=== PATIENT | male | born 1945 | race Caucasian/White ===

== ENCOUNTER 2022-04-24 10:38 | Inpatient (IN) | payer OTHER, SELFPAY ==
[2022-04-24] VITALS (20 sets, daily range): BP systolic 115–168; BP diastolic 55–84; PULSE 65–89; RESP 12–29; TEMP 36.4; O2SAT 93–97
--- NOTE | 2022-04-24 10:41 | XR_ITS ---
WS: [id number] Portable AP upright chest, 04/24/2022 Clinical Data: chest pain Comparison: None. Findings: No nodules, masses or effusions are seen. The heart is normal. The pulmonary vascularity is not increased. No pneumonia or pneumothorax is seen. The aortic arch and descending thoracic aorta s how minimal calcification and tortuosity. There are monitor leads on the chest wall. XR/XR chest 1V portable [id number] Impression: Atherosclerosis.
--- NOTE | 2022-04-24 10:41 | ECG_ITS ---
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 Measurements Intervals [place] Rate: 79 P: 68 RI: 185 QRS: -33 QRSD: 91 T: 63 QT: 375 QTc: 431 Interpretive Statements SINUS RHYTHM LEFT AXIS DEVIATION [QRS AXIS < -30] INCOMPLETE RIGHT BUNDLE BRANCH BLOCK [90+ ms QRS DURATION, TERMINAL R IN V1/V2, 40+ ms S IN I/aVL/V4/V5/V6] No previous ECG available for comparison Electronically Signed On 04-24-2022 23:38:25 RADIOLOGIC TECHNOLOGIST MAMMOGRAM by Johann Todd M.D. [id number]
--- NOTE | 2022-04-24 10:50 | ED_ITS ---
HPI - Chest Pain General: Chief Complaint: ER Hold Stated Complaint: CHEST PAIN Time Seen by Provider: 04/24/22 10:41 Source: patient Mode of arrival: ambulatory History of Present Illness: 76-year-old male who presents to the emergency room with complaints of chest pain. He is intermittently having chest pain for the last several weeks usually comes at rest resolves after 10 minutes roughly. He will get diaphoretic and nauseous with it today had a more severe intense episode while he was at rest he did not improve. He was driving at the time he drove back into town and went to the [place] they directed him to the ER via [facility]. First EKGs done at the [place] were negative. He was given sublingual nitro by EMS and reports that chest discomfort did improve he still has a little mild chest discomfort now. He was nauseous diaphoretic and dyspneic with that as well. MD complaint: chest pain Onset (ago): minute(s) Timing of current episode: episodic Prior episodes: Yes Onset: during rest Pain location: substernal and left chest Pain radiation: left arm Severity: moderate Quality: aching and heaviness Relieving factors: nitroglycerin Associated symptoms: Reports diaphoresis, dyspnea and nausea; Deny abdominal pain, fever(s), leg edema, palpitations, sense of impending doom, syncope or vomiting Treatment prior to arrival: nitroglycerin Review of Systems Const: Reports: diaphoresis; Denies: fever(s), chills, body aches, change in appetite, fatigue or malaise ENMT: Denies: throat pain, ear or mastoid pain, nasal discharge or nasal congestion Card: Denies: chest pain, palpitations, irregular heart rhythm, edema, swelling of feet/ankles or syncope Resp: Reports: dyspnea; Denies: productive cough, non-productive cough or wheezing GI: Reports: nausea; Denies: abdominal pain or vomiting : Denies: flank pain, dysuria, urinary frequency or urinary urgency Skin/Breast: Denies: rash or pruritus [facility] ED PFSH: Medical History Benign prostate hyperplasia Surgical History No pertinent past surgical history Family History Other Cancer Diabetes Hypertension Denies family history of CAD (coronary artery disease) Stroke Social History Smoking and tobacco status: never smoked Physical Exam Const: GENERAL APPEARANCE: cooperative and comfortable ORIENTATION/CONSCIOUSNESS: Yes awake, Yes oriented to person, Yes oriented to place and Yes oriented to time HENMT: COMMON NORMALS: normocephalic, atraumatic and hearing grossly normal bilaterally HEAD & SCALP: normocephalic and atraumatic Resp: COMMON NORMALS: normal respiratory effort, No retractions, No use of accessory muscles and clear to auscultation bilaterally AUSCULTATION: clear to auscultation bilaterally Cardio: COMMON NORMALS: regular rate, regular rhythm and No murmurs present (Cardio) RATE: regular rate RHYTHM: regular rhythm GI: COMMON NORMALS: Soft to palpation and No hepatosplenomegaly present AUSCULTATION: Yes normoactive bowel sounds PALPATION: Yes Soft to palpation, No Tenderness to palpation present (GI), No Guarding due to palpation present (GI) and Yes No hepatosplenomegaly present Extremity: COMMON NORMALS: normal to inspection, capillary refill normal, no clubbing, cyanosis or edema, no calf tenderness and no pedal edema Neuro: SENSORIUM/ORIENTATION: Yes oriented to person, Yes oriented to place an d Yes oriented to time Skin: COMMON NORMALS: no rashes or lesions noted GENERAL SKIN EXAM: no rashes or lesions noted Course Vital Signs: Vital signs: Vital Signs Pulse Rate 71 04/24/22 13:30 Respiratory Rate 20 H 04/24/22 13:30 Blood Pressure 126/68 04/24/22 13:30 Pulse Oximetry 96 04/24/22 13:30 Oxygen Delivery Me thod 04/24/22 10:44 MDM - Chest Pain Medical Decision Making Unstable angina. His EKG did not show any acute changes he was given Lovenox aspirin and topical nitro he is asymptomatic at this time but his 2-hour troponin does have a positive delta of 34. We will admit discussed with hospitalist and with cardiology. Dr. Malagon is aware of the delta change. Medical Records I reviewed the patient's medical records. Lab Data I reviewed the patient's lab results. 04/24/22 10:45 04/24/22 10:45 Radiology Impressions Chest X-Ray 04/24/22 10:41 Impression: Atherosclerosis. Laboratory Results WBC 4.5 10^3/uL (4.0-10.0) 04/24/22 10:45 RBC 4.83 10^6/uL (4.1-5.3) 04/24/22 10:45 Hgb 14.9 g/dL (11.7-16.6) 04/24/22 10:45 Hct 42.6 % (42.0-52.0) 04/24/22 10:45 MCV 88.2 fl (80-94) 04/24/22 10:45 MCH 30.8 pg (28.0-34.0) 04/24/22 10:45 MCHC 35.0 g/dL (30.0-36.0) 04/24/22 10:45 RDW 11.9 % (12.1-15.1) L 04/24/22 10:45 Plt Count 175 10^3/cmm (130-400) 04/24/22 10:45 MPV 10.2 fL (7.4-10.4) 04/24/22 10:45 Neut % (Auto) 61.2 % 04/24/22 10:45 Lymph % (Auto) 23.2 % 04/24/22 10:45 [place] % (Auto) 10.7 % 04/24/22 10:45 Eos % (Auto) 3.6 % 04/24/22 10:45 Baso % (Auto) 1.1 % 04/24/22 10:45 Neut # (Auto) 2.75 10^3/uL (1.8-7.7) 04/24/22 10:45 Lymph # (Auto) 1.0 10^3/uL (0.8-4.8) 04/24/22 10:45 [place] # (Auto) 0.5 10^3/uL (0.2-0.9) 04/24/22 10:45 Eos # (Auto) 0.2 10^3/uL (0.0-0.8) 04/24/22 10:45 Baso # (Auto) 0.1 10^3/uL (0.0-0.1) 04/24/22 10:45 Nucleated RBC % (auto) 0 % 04/24/22 10:45 Nucleated RBCs # 0.0 /100WBC 04/24/22 10:45 Sodium 138 mmol/L (136-145) 04/24/22 10:45 Potassium 4.5 mmol/L (3.5-5.1) 04/24/22 10:45 Chloride 102 mmol/L (98-107) 04/24/22 10:45 Carbon Dioxide 27 mmol/L (22-29) 04/24/22 10:45 Anion Gap 13.5 (5-19) 04/24/22 10:45 BUN 14 mg/dL (8-23) 04/24/22 10:45 Creatinine 0.8 mg/dL (0.7-1.2) 04/24/22 10:45 GFR Calculation Not Reportable 04/24/22 10:45 Glucose 113 mg/dL (65-115) 04/24/22 10:45 Calculated Osmolality 287 mOsm/kg (285-295) 04/24/22 10:45 Calcium 9.3 mg/dL (8.5-10.5) 04/24/22 10:45 Total Bilirubin 1.0 mg/dL (0.15-1.2) 04/24/22 10:45 AST 23 U/L (0-40) 04/24/22 10:45 ALT 24 U/L (0-41) 04/24/22 10:45 Alkaline Phosphatase 86 U/L (40-130) 04/24/22 10:45 Troponin T Baseline 11 ng/L (0-15) 04/24/22 10:45 Total Protein 6.6 g/dL (6.6-8.7) 04/24/22 10:45 Albumin 4.5 g/dL (3.5-5.2) 04/24/22 10:45 Globulin 2.1 g/dL (1.3-4.6) 04/24/22 10:45 Discharge Plan Discharge Patient Disposition: Admitted As Inpatient Admit Provider: Deysi Linares Clinical Impression: Unstable angina, Non-ST elevation LA (NSTEMI) Condition: Stable Coding Level of Care Code ED Supervisor Cabinetmaker for Pedro Tyler
[2022-04-24 10:59] LABS: Basophils # 0.1 10^3/uL (0.0-0.1); Basophils % 1.1 %; Eosinophils # 0.2 10^3/uL (0.0-0.8); Eosinophils % 3.6 %; Hematocrit 42.6 % (42.0-52.0); Hemoglobin 14.9 g/dL (11.7-16.6); Lymphocytes % 23.2 %; Mean Corpuscular Hemoglobin 30.8 pg (28.0-34.0); Mean Corpuscular Volume 88.2 fl (80-94); Mean Platelet Volume 10.2 fL (7.4-10.4); Monocytes # 0.5 10^3/uL (0.2-0.9); Monocytes % 10.7 %; Neutrophils # 2.75 10^3/uL (1.8-7.7); Neutrophils % 61.2 %; Nucleated Red Blood Cells % 0 %; Platelet Count 175 10^3/cmm (130-400); Red Blood Count 4.83 10^6/uL (4.1-5.3); Red Cell Distribution Width 11.9 % (12.1-15.1); White Blood Count 4.5 10^3/uL (4.0-10.0)
[2022-04-24 11:21] LABS: Alanine Aminotransferase 24 U/L (0-41); Albumin Level 4.5 g/dL (3.5-5.2); Alkaline Phosphatase 86 U/L (40-130); Anion Gap 13.5 (5-19); Aspartate Amino Transferase 23 U/L (0-40); Blood Urea Nitrogen 14 mg/dL (8-23); Calcium 9.3 mg/dL (8.5-10.5); Carbon Dioxide 27 mmol/L (22-29); Chloride 102 mmol/L (98-107); Globulin 2.1 g/dL (1.3-4.6); Glucose 113 mg/dL (65-115); Osmolality Calculated 287 mOsm/kg (285-295); Potassium 4.5 mmol/L (3.5-5.1); Sodium 138 mmol/L (136-145); Total Protein 6.6 g/dL (6.6-8.7)
[2022-04-24 11:23] LABS: Troponin(5th) Baseline 11 ng/L (0-15)
[2022-04-24] MEDS: nitroglycerin 1 gm/inch oint Pkt 1 INCH TOPICAL (11:41)
--- NOTE | 2022-04-24 12:12 | PC.PHAR ---
pt states he takes care of his own medications-pts va med list has bupropion ir 75mg bid pt states stop taking 6 months ago-pts va med list also has vit c 1000mg daily,probiotic daily,zinc 50mg daily,vitamin d 1000u daily and aspirin 325mg daily pt states stop taking them a month ago
--- NOTE | 2022-04-24 13:07 | ECG_ITS ---
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 Measurements Intervals [place] Rate: 69 P: 81 [place]: 187 QRS: -1 QRSD: 94 T: 81 QT: 373 QTc: 400 Interpretive Statements SINUS RHYTHM INCOMPLETE RIGHT BUNDLE BRANCH BLOCK [90+ ms QRS DURATION, TERMINAL R IN V1/V2, 40+ ms S IN I/aVL/V4/V5/V6] NONSPECIFIC T-WAVE ABNORMALITY Compared to ECG 04/24/2022 10:59:11 T-wave abnormality now present Left-axis deviation no longer present Electronically Signed On 04-24-2022 23:53:45 MANNEQUIN MAKER by Johann Todd M.D. [id number]
[2022-04-24 13:36] LABS: Troponin 5 2HR 45.13 ng/L (0-15)
--- NOTE | 2022-04-24 13:46 | PC.NURSE ---
NOMI Harris took report from NOMI Jaimes at 0650
[2022-04-24 13:48] LABS: Troponin 5 2HR Delta 34.13 ABS# (0-10)
--- NOTE | 2022-04-24 14:11 | PM.HP ---
Providers/Chief Complaint Admitting Physician: Deysi Linares MD Primary Care Provider: Jordan Fatima Chief Complaint: CHEST PAIN History of Present Illness Costa Aguilar is a 76 year old male who does not have significant past medical history of cardiac disease presented today with chief complaint of chest pain. Patient has had 2-3 episodes of chest discomfort which he is describing as burning sensation radiates to his shoulders. His symptoms have no correlation with exertion, he has noticed chest pain at rest as well. Today when he was traveling to [place] he had an episode while he was driving the car. This persisted for good 10 to 20 minutes which was associated with nausea, dizziness pallor complexion. He was seen at [facility] hence was prompted to the ER for further evaluation. He was given aspirin Nitropaste which relieved his symptoms. Review of Systems Const: Denies: fever(s) Eyes: Denies: change in vision ENMT: Denies: throat pain Card: Reports: chest pain Resp: Denies: dyspnea GI: Denies: abdominal pain : Denies: flank pain Musc: Denies: neck pain Skin/Breast: Denies: rash Neuro: Denies: headache(s) Psych: Denies: anxiety Endo: Denies: polyuria Odell/Lymph: Denies: easy bruising All/Imm: Denies: urticaria Medications/Allergies Home Medications Medication Instructions Recorded Confirmed Last Taken Type acetaminophen 500 mg tablet 500 mg PO QID PRN Pain 04/24/22 04/24/22 Unknown History albuterol sulfate 90 mcg/actuation 2 puff inhalation QID PRN 04/24/22 04/24/22 Unknown History aerosol inhaler (ProAir HFA) Shortness Of Breath esomeprazole magnesium 40 mg 40 mg PO BID 04/24/22 04/24/22 04/24/22 08:00 History capsule,delayed release (Nexium) terazosin 10 mg capsule 10 mg PO QPM 04/24/22 04/24/22 04/23/22 History Allergies Allergy/AdvReac Type Severity Reaction Status Date / Time No Known Allergies Allergy Verified 04/24/22 12:08 PFSH Acute PFSH: Medical History Benign prostate hyperplasia Surgical History No pertinent past surgical history Family History Other Cancer Diabetes Hypertension Denies family history of CAD (coronary artery disease) Stroke Social History Smoking and tobacco status: never smoked Vitals/I&O/Wt Last Vital Signs Pulse 71 04/24/22 13:30 Resp 20 H 04/24/22 13:30 BP 126/68 04/24/22 13:30 Pulse Ox 96 04/24/22 13:30 O2 Del Method 04/24/22 10:44 Weight last 48 hrs Weight 91.626 kg Physical Exam Narrative: Pleasant cooperative male Appears stated age Chest pain-free S1, S2 Abdomen soft GCS 15 Nonfocal neuro exam Currently on room air Pleasant and cooperative at the bedside No acute distress Data 04/24/22 10:45 04/24/22 10:45 A&P Assessment and plan (1) Unstable angina: (2) Non-ST elevation CO (NSTEMI): Plan Unstable angina Cardiac consulted We will keep him n.p.o. until coronary intervention No need to stress test Although EKG and troponins are negative but patient has typical signs of underlying angina Continue aspirin and Plavix High-dose statins Optimize antihypertensive regimen Check lipid profile A1c level Full code We will start cardiac diet after cardiac evaluation DVT prophylaxis Lovenox Requested echo Check D-dimer Hypertension: I will give him metoprolol and lisinopril and add chlorthalidone stage III hypertension Talked with Dr. Malagon & the ER physician Attestations Medical Necessity Statement*: Anticipating discharge within 48 hours Diagnoses Unstable angina I20.0 Non-ST elevation CO (NSTEMI) I21.4
--- NOTE | 2022-04-24 14:29 | USCV_ITS ---
Costa Aguilar Age: 76 Gender: M : 1945 Exam Date: 04/24/2022 14:50 Ordering Phys: Deysi Linares MD Technologist: Bandar Nevarez Exam Location: [facility] Indication: UA BP: 118 / 64 HR: 66 Rhythm: Sinus Technical Quality: Suboptimal MEASUREMENTS (Male / Female) Normal Values 2D ECHO LV Diastolic Diameter PLAX 3.4 cm 4.2 - 5.9 / 3.9 - 5.3 cm LV Systolic Diameter PLAX 2.4 cm IVS Diastolic Thickness 1.1 cm 0.6 - 1.0 / 0.6 - 0.9 cm IVS Systolic Thickness 1.4 cm LVPW Diastolic Thickness 1.3 cm 0.6 - 1.0 / 0.6 - 0.9 cm LVPW Systolic Thickness 1.4 cm LVOT Diameter 2.2 cm LV Ejection Fraction 2D Teich 54.1 % LV Ejection Fraction MOD 2C 68.6 % LV Ejection Fraction 2C AL 69.7 % LA Diameter 4.0 cm M-MODE Aortic Annulus Diameter 4.0 cm LA Ao Ratio MM 1.1 MV E Point Septal Separation 0.7 cm DOPPLER AV Peak Velocity 100.0 cm/s LVOT Peak Velocity 89.0 cm/s AV Area Cont Eq vti 3.4 cm squared AV Area Cont Eq pk 3.5 cm squared MV Area PHT 5.0 cm squared Mitral E to A Ratio 0.8 MV E' Velocity 45.0 cm/s Mitral E to MV E' Ratio 7.6 Mitral E to LV E' Lateral Ratio 6.1 Mitral E to LV E' Septal Ratio 9.9 TR Peak Velocity 213.7 cm/s TR Peak Gradient 18.3 mmHg TV Peak E Velocity 77.0 cm/s Right Atrial Pressure 3.0 mmHg Pulmonary Artery Systolic Pressu 21.3 mmHg FINDINGS Left Ventricle Normal left ventricular size, systolic function and wall thickness, with no regional wall motion abnormalities. Grade I/IV diastolic dysfunction (abnormal relaxation filling pattern), normal to mildly elevated filling pressures. Left ventricular ejection fraction is estimated at 60 %. Right Ventricle Normal right ventricular size and systolic function. Normal right ventricular systolic pressure. Right Atrium The right atrium is normal in size. Left Atrium The left atrium is normal in size. Mitral Valve Structurally normal mitral valve without significant stenosis or prolapse. There is no mitral regurgitation. Aortic Valve Structurally normal trileaflet aortic valve. No aortic valve stenosis. Trace to mild aortic valve regurgitation. Tricuspid Valve Structurally normal tricuspid valve without significant stenosis or regurgitation. Pulmonary artery systolic pressure is normal. Pulmonic Valve Structurally normal pulmonic valve. Pericardium Normal pericardium without effusion. Aorta Normal ascending aorta dimension. IVC Inferior vena cava not visualized. CONCLUSIONS Normal left ventricular size, systolic function and wall thickness, with no regional wall motion abnormalities. Grade I/IV diastolic dysfunction (abnormal relaxation filling pattern), normal to mildly elevated filling pressures. Left ventricular ejection fraction is estimated at 60 %. Structurally normal trileaflet aortic valve. No aortic valve stenosis. Trace to mild aortic valve regurgitation. There are no prior echocardiogram studies to compare. Dr. Trever Malagon MD (Electronically Signed) Final Date: 24 April 2022 18:11 S
[2022-04-24 14:57] LABS: D Dimer 0.37 ug/mIFEU (0-0.59)
--- NOTE | 2022-04-24 15:21 | P.CONIM_ITS ---
Providers/Reason For Consult Consulting Physician/Specialty*: Cardiovascular medicine Reason for Consult*: Unstable angina/non-ST segment elevation NM Requesting Physician: Emergency room Attending Physician: Deysi Linares MD Primary Care Provider: Jordan Fatima History of Present Illness History of Present Illness Costa Aguilar is a 76 year old male who has been healthy and has no history of heart disease. Since 16 February he has had 3 episodes of burning in his chest associated with tightness which radiates to both shoulders. These have happened at rest and lasts 5 or 10 minutes. They sound like classic anginal episodes. Today while he and his were traveling to [place] he had an episode while they were in the car. This was at rest also. This 1 was worse and would not go away. It is described as burning in his chest with tightness radiating to the left shoulder associated with diaphoresis. His said that he turned white. She convinced him to go to the [place] clinic who sent him over here. He was given aspirin and Nitropaste. He has been pain-free ever since. His first troponin was 11 and the second is 45. His EKG is unremarkable. He has no past medical history to speak of. He has prostatic hypertrophy. No dyslipidemia no diabetes no hypertension. He quit smoking when he was 29 years old. Review of Systems Narrative: Review of systems is negative Medications/Allergies Home Medications Medication Instructions Recorded Confirmed Last Taken Type acetaminophen 500 mg tablet 500 mg PO QID PRN Pain 04/24/22 04/24/22 Unknown History albuterol sulfate 90 mcg/actuation 2 puff inhalation QID PRN 04/24/22 04/24/22 Unknown History aerosol inhaler (ProAir HFA) Shortness Of Breath esomeprazole magnesium 40 mg 40 mg PO BID 04/24/22 04/24/22 04/24/22 08:00 History capsule,delayed release (Nexium) terazosin 10 mg capsule 10 mg PO QPM 04/24/22 04/24/22 04/23/22 History Allergies Allergy/AdvReac Type Severity Reaction Status Date / Time No Known Allergies Allergy Verified 04/24/22 12:08 PFSH Acute PFSH: Medical History Benign prostate hyperplasia Surgical History No pertinent past surgical history Family History Other Cancer Diabetes Hypertension Denies family history of CAD (coronary artery disease) Stroke Social History Smoking and tobacco status: never smoked Vitals/I&O/Wt Last Vital Signs Pulse 67 04/24/22 14:30 Resp 12 04/24/22 14:30 BP 138/74 04/24/22 14:30 Pulse Ox 96 04/24/22 14:30 O2 Del Method 04/24/22 14:00 Weight last 48 hrs Weight 202 lb Physical Exam Narrative: GENERAL: In general he looks and feels well HEENT: Exam within normal limits. NECK: Supple without jugular vein distention. The carotid upstroke is normal without bruits. BACK: Exam normal. LUNGS: Clear. HEART: Regular rate and rhythm. ABDOMEN: Benign without organomegaly or tenderness. EXTREMITIES: No edema. NEUROLOGIC: Exam normal. SKIN: Unremarkable. Data 04/24/22 10:45 04/24/22 10:45 A&P Assessment and plan (1) Unstable angina: (2) Non-ST elevation NM (NSTEMI): Plan Cardiac catheterization today. I have discussed the risks and the benefits and the procedure with the patient and his . Consult Attestations Medical Necessity Statement: Admission for unstable angina/non-ST segment elevation NM and Moderate Time for a total of 30 minutes, includes reviewing past or interval history, examining/interviewing patient, placing orders, counseling patient/family/other support, updating patient/family/other support, discussing plan of care with staff, communicating with other healthcare providers, documenting encounter and coordinating care Other Coding Information Procedural care (documented in another note) Diagnoses Unstable angina I20.0 Non-ST elevation NM (NSTEMI) I21.4
--- NOTE | 2022-04-24 15:21 | XACV_ITS ---
Exam Room: 2 Ht: 175 cm Wt: 92 kg BSA: 2.14 m2 Gender: Male : 1945 Any Known Allergies: No known allergies Exam Priority: Routine Procedure(s): Procedure Description: Diagnostic procedure Procedure Description: PCI procedure Procedure Description: Left Heart Catheterization Procedure Description: Left ventriculography Procedure Description: Drug Eluting Coronary Stent Procedure Description: Coronary Angiography Vesna VOGT; Diagnostic Cath Status: Urgent Diagnostic Findings * Patient with classic symptoms of unstable angina at rest. Entered the emergency room with no EKG changes but mild elevation in the troponin. Angiography recommended. * Coronary angiography reveals right coronary artery dominance. The left main coronary artery is normal. In the distal portion of the left main extending into the ostial LAD there is an 85% stenosis. The remainder of the there is a small ramus intermedius branch which is essentially normal. The circumflex is likewise normal. The right coronary artery is a large dominant vessel which ends distally as the posterior descending artery and several small posterior left ventricular branches. The vessel is essentially normal.. PCI Status: Urgent PCI LVEF Assessed: Yes PCI Indication: NSTE - ACS Interventional Findings * The ostial LAD was primarily stented with a 4 x 8 mm drug-eluting stent. The end result was excellent. Decision for PCI with Surgical Consult: No PCI for Multi-vessel Disease: No Conclusions 1. Significant flow-limiting ostial LAD lesion. Primarily stented with good result. Recommendations * Medical therapy medical therapy for now. Interventional RX Recommendation: PCI w/o planned CABG Diagnostic RX Recommendation: PCI w/o planned CABG Anticoagulation: Heparin Ventriculography Ejection Fraction: 65.0 % Pressures Phase:Rest AO : 92 / 72 ( 81 ) @ 3:54:00 PM 126 / 64 ( 88 ) @ 3:59:00 PM 124 / 62 ( 86 ) @ 4:00:00 PM 129 / 64 ( 89 ) @ 4:00:00 PM LV : 121 / -4 / 12 @ 3:58:00 PM 103 / 0 / 7 @ 3:59:00 PM 106 / 0 / 6 @ 3:59:00 PM Valves Phase:DefaultPhase AV : 0.0 @ 4:19:27 PM Clinical Evaluation EBL: 5mL-10mL Procedural Details Procedure Consent Obtained. Pre-Procedure Time Out. Identified patient by full name and date of as verbalized by the patient/guarantor. Does the consent match the physician's order: Yes. Accurate & Complete Informed Consent: Yes. Inpatient/Outpatient History & Physical on Chart: Yes. If H&P is completed, is and addenduem needed: No; If yes, is the addendum complete: N/A. Visualize and Verify Site with Patient/Guarantor: N/A. Relevant Radiology Images available: N/A. Pre-op teaching completed and patient verbalized understanding. The risks, benefits, and alternatives of sedation and/or procedure were discussed by physician. The patient agrees to continue. Procedure started. Correct patient, site and procedure confirmed by cath team. PERRLA. Strong, equal hand manager fine bilaterally. Lungs clear x 5 lobes. IV Site on Arrival: 18 gauge in the left anticubital. IV Fluids: 0.9% NaCl at KVO. 0 mL infused prior to dairy laboratory technician. Pre Procedural Pulses: right radial was 3+. Oxygen started at 2liters/min via nasal canula. right groin was prepped with chloroprep then draped in the usual sterile fashion. right radial was prepped with chloroprep then draped in the usual sterile fashion. Physician arrived. Equipment: 6F - Radial. Cardiac Cath Pack. ACIST Manifold Kit Model BT 2000. Heparinized Saline (2 units/mL), 1000 mL bag. Baseline sample Acquired. HR: 78 BPM. Physician scrubbed in. Immediate Pre-Procedure Time Out. Correct Patient: Yes; Correct Procedure: Yes; Correct Site: Yes; Correct Patient Position: Yes; Correct Supplies: Yes; Dried Flammable Prep: Yes; Blood Products Available: N/A;. Lidocaine 1% infiltrated to the right radial. Arterial access obtained. A 6 mozambican TIG catheter in over wire. Multiple views taken of left coronary artery. Georgina Monsivais, SCRUM COACH was relieved by Farhana Oakes RN, DIRECTOR OF INFECTION CONTROL as monitoring person. Catheter redirected to the RCA. Multiple views taken of right coronary artery. Catheter out. A 6 mozambican Angled Pig catheter in over wire. EDP Sample taken: LV 121/-5,12; HR: 95 BPM; SpO2: 97%. LV gram performed in OVI[place]O @ 10 mL/second for a total of 30 mL. EDP Sample taken: LV 103/0,7; HR: 92 BPM; SpO2: 97%. Pullback taken: LV 106/0,6; AO 126/64(88); Mean: , Peak to Peak: 0mmHg, SEP: ; HR: 91 BPM; SpO2: 98%. Catheter out. 6 mozambican XB 3 guide catheter was inserted over the wire. Bern guidewire was advanced through the guide catheter to lesion in the ostial LAD. Inflation Number : 1 A MDT R MATEO 4.0X08 MARY -Lot Number# [id number] was prepped and advanced across the Prox LAD. The stent was deployed at 12 MARISA for 0:23 seconds. Exp. 2023-10-20. Stent balloon out over wire. Results checked. Wire out. Guide catheter out. Dr Malagon scrubbed out. A TR Band was successful obtaining hemostatsis at the Right Radial artery insertion site. TR band placed. Hemostasis obtained. Post Procedure: Pulses reassessed and unchanged. PERRLA. Strong, equal hand manager fine bilaterally. No VTE prophylaxis required. Medication's Wasted: Lidocaine 1% = 1 mL. Medication's Wasted: Nitro = 49.8 mg. Medication's Wasted: Heparin = 1000 units. Medication's Wasted: Other = Fentanyl 50 mcg. Total IV fluids: 33 mL. Post-op diagnosis: S/P PCI of the ostial LAD. PCI Indication: NSTE. Complications: none. Estimated blood loss: 5mL-10mL. Responsiveness - Normal response to verbal stimuli; alert and oriented, PERRLA. Airway - Unaffected, no intervention required; spontaneous ventilation. Circulation: W/N/L, pulses unchanged. Nausea/Vomiting: No. Procedure completed. Vital chart was stopped. Access Site Site: Right Radial artery Sheath Size: 6 Fr Hemostasis Method: TR Band Hemostasis Success: Successful Procedure Medications Start: 3:43 PM Stop: 3:43 PM Medication: Versed Amount: 1 mg Route: I.V. Start: 3:43 PM Stop: 3:43 PM Medication: Fentanyl Amount: 50 mcg Route: I.V. Start: 3:51 PM Stop: 3:51 PM Medication: Nitrogylcerin Amount: 200 mcg Route: I.A. Start: 3:52 PM Stop: 3:52 PM Medication: Versed Amount: 1 mg Route: I.V. Start: 3:51 PM Stop: 3:51 PM Medication: Heparin Amount: 5000 units Route: I.V. Start: 4:14 PM Stop: 4:14 PM Medication: Plavix Amount: 600 mg Route: P.O. I, the attending physician, have reviewed and verified all procedure medications. Yes, all medications given per verbal order History/Risk Factors Hypertension: No Dyslipidemia: No Peripheral Arterial Disease (PAD): No Myocardial Infarction ([place]): No Obesity: No Renal Disease: No Tobacco Use: Never Prior Interventions PCI: No CABG: No Valve Surgery: No Report Signatures Finalized by Dr. Trever Malagon MD on 04/24/2022 04:34 PM
[2022-04-24 15:51] LABS: Estmated Average Glucose 100; Hemoglobin A1C 5.1 % (4.0-6.0)
--- NOTE | 2022-04-24 16:41 | ECG_ITS ---
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 Measurements Intervals Cylinder Rate: 68 P: 70 AR: 203 QRS: -22 QRSD: 91 T: 60 QT: 392 QTc: 419 Interpretive Statements SINUS RHYTHM BORDERLINE LEFT AXIS DEVIATION [QRS AXIS < -20] INCOMPLETE RIGHT BUNDLE BRANCH BLOCK [90+ ms QRS DURATION, TERMINAL R IN V1/V2, 40+ ms S IN I/aVL/V4/V5/V6] Compared to ECG 04/24/2022 13:07:28 T-wave abnormality no longer present Electronically Signed On 04-24-2022 23:54:25 PUBLIC HEALTH PROGRAM MANAGER by Johann Todd M.D. [email or web address] [id number]
[2022-04-24 17:32] LABS: Troponin 5 6HR 44.51 ng/L (0-15)
[2022-04-24 17:36] LABS: Troponin 5 6HR Delta 33.51 ng/L (0-12)
[2022-04-24] MEDS: metoprolol tartrate 25 mg Tablet PO (18:18)
[2022-04-24] MEDS: sodium chloride 0.9% 1,000 ML 100 ML IV (18:19)
[2022-04-24] MEDS: pantoprazole DR 40 mg Tablet PO (18:19)
[2022-04-24] MEDS: chlorthalidone 25 mg Tablet 12.5 MG PO (18:27)
[2022-04-24] MEDS: enoxaparin 40 mg/0.4 mL Syringe SUBCUT (18:27)
[2022-04-24] MEDS: lisinopril 10 mg Tablet PO (18:27)
[2022-04-24] MEDS: terazosin 5 mg Capsule 10 MG PO (18:42)
[2022-04-24] MEDS: acetaminophen 500 mg Tablet PO (18:44)
[2022-04-25] VITALS: BP 171/105; PULSE 78; RESP 23; TEMP 37; O2SAT 97
[2022-04-25] MEDS: sodium chloride 0.9% 1,000 ML 100 ML IV (03:43)
[2022-04-25 05:00] VITALS: BP 111/69; PULSE 59; RESP 21; TEMP 36.5; O2SAT 97
[2022-04-25 05:23] VITALS: PULSE 54
[2022-04-25 05:46] LABS: Blood Urea Nitrogen 12 mg/dL (8-23); Calcium 8.7 mg/dL (8.5-10.5); Carbon Dioxide 24 mmol/L (22-29); Chloride 102 mmol/L (98-107); Glucose 98 mg/dL (65-115); Osmolality Calculated 284 mOsm/kg (285-295); Sodium 137 mmol/L (136-145)
[2022-04-25 05:57] LABS: Anion Gap 15.1 (5-19); Potassium 4.1 mmol/L (3.5-5.1)
--- NOTE | 2022-04-25 06:50 | PM.DCS ---
Discharge Providers Date of Admission: 04/24/22 16:51 Date of Discharge: April 25, 2022 Attending Provider at Admission: Deysi Linares MD Attending Provider at Discharge: Deysi Linares MD Primary Care Provider: Jordan Fatima Diagnoses at Discharge Discharge Diagnosis (1) Unstable angina: Status: Acute (2) Non-ST elevation [place] (NSTEMI): Status: Acute Reason for Visit Reason for Visit: CHEST PAIN Hospital Course Hospital Course 76-year male who presented with typical unstable anginal symptoms, EKG and troponins with significant delta, he was taken to the [facility] right away, received a stent in ostial LAD, symptoms resolved, overnight was bradycardic 54 heart rate noted, for his hypertension he will receive chlorthalidone, lisinopril, amlodipine, avoiding metoprolol for now, he will need aspirin and Plavix for at least 1 year along with atorvastatin. Patient follows up at [facility]. He can continue his Nexium and terazosin for BPH. Patient clinically stable. Shows normal ejection fraction, D-dimer unremarkable. Physical Exam Narrative: Patient awake and alert Right breast without any hematoma S1, S2 Awake and alert We will try to wheezing Pleasant and cooperative Discharge Data Studies Completed and Pending Completed Studies During Hospitalization Category Date Time Status ADVERTISEMENT DISTRIBUTOR request for service Routine Exams 04/24/22 15:21 Completed XR chest 1V portable [id number] Stat Exams 04/24/22 10:41 Completed CV. echo complete* [id number] Routine Ultrasound 04/24/22 14:29 Completed Radiology Impressions Chest X-Ray 04/24/22 10:41 Impression: Atherosclerosis. Laboratory Results WBC 4.5 10^3/uL (4.0-10.0) 04/24/22 10:45 RBC 4.83 10^6/uL (4.1-5.3) 04/24/22 10:45 Hgb 14.9 g/dL (11.7-16.6) 04/24/22 10:45 Hct 42.6 % (42.0-52.0) 04/24/22 10:45 MCV 88.2 fl (80-94) 04/24/22 10:45 MCH 30.8 pg (28.0-34.0) 04/24/22 10:45 MCHC 35.0 g/dL (30.0-36.0) 04/24/22 10:45 RDW 11.9 % (12.1-15.1) L 04/24/22 10:45 Plt Count 175 10^3/cmm (130-400) 04/24/22 10:45 MPV 10.2 fL (7.4-10.4) 04/24/22 10:45 Neut % (Auto) 61.2 % 04/24/22 10:45 Lymph % (Auto) 23.2 % 04/24/22 10:45 [place] % (Auto) 10.7 % 04/24/22 10:45 Eos % (Auto) 3.6 % 04/24/22 10:45 Baso % (Auto) 1.1 % 04/24/22 10:45 Neut # (Auto) 2.75 10^3/uL (1.8-7.7) 04/24/22 10:45 Lymph # (Auto) 1.0 10^3/uL (0.8-4.8) 04/24/22 10:45 [place] # (Auto) 0.5 10^3/uL (0.2-0.9) 04/24/22 10:45 Eos # (Auto) 0.2 10^3/uL (0.0-0.8) 04/24/22 10:45 Baso # (Auto) 0.1 10^3/uL (0.0-0.1) 04/24/22 10:45 Nucleated RBC % (auto) 0 % 04/24/22 10:45 Nucleated RBCs # 0.0 /100WBC 04/24/22 10:45 D-Dimer 0.37 ug/mIFEU (0-0.59) 04/24/22 10:45 Sodium 137 mmol/L (136-145) 04/25/22 04:43 Potassium 4.1 mmol/L (3.5-5.1) 04/25/22 04:43 Chloride 102 mmol/L (98-107) 04/25/22 04:43 Carbon Dioxide 24 mmol/L (22-29) 04/25/22 04:43 Anion Gap 15.1 (5-19) 04/25/22 04:43 BUN 12 mg/dL (8-23) 04/25/22 04:43 Creatinine 0.7 mg/dL (0.7-1.2) 04/25/22 04:43 GFR Calculation Not Reportable 04/25/22 04:43 Glucose 98 mg/dL (65-115) 04/25/22 04:43 Estimat Average Glucose 100 04/24/22 10:45 Hemoglobin A1c 5.1 % (4.0-6.0) 04/24/22 10:45 Calculated Osmolality 284 mOsm/kg (285-295) L 04/25/22 04:43 Calcium 8.7 mg/dL (8.5-10.5) 04/25/22 04:43 Magnesium 2.0 mg/dL (1.7-2.3) 04/25/22 04:43 Total Bilirubin 1.0 mg/dL (0.15-1.2) 04/24/22 10:45 AST 23 U/L (0-40) 04/24/22 10:45 ALT 24 U/L (0-41) 04/24/22 10:45 Alkaline Phosphatase 86 U/L (40-130) 04/24/22 10:45 Troponin T Baseline 11 ng/L (0-15) 04/24/22 10:45 Troponin T 120 Minute 45.13 ng/L (0-15) H 04/24/22 12:55 Delta Troponin T 34.13 ABS# (0-10) H* 04/24/22 12:55 Troponin T Hi Sens 6Hr 44.51 ng/L (0-15) H 04/24/22 16:54 Troponin T Hi Sens 6Hr Delta 33.51 ng/L (0-12) H* 04/24/22 16:54 Total Protein 6.6 g/dL (6.6-8.7) 04/24/22 10:45 Albumin 4.5 g/dL (3.5-5.2) 04/24/22 10:45 Globulin 2.1 g/dL (1.3-4.6) 04/24/22 10:45 Vitals Last Vital Signs Temp 97.7 F 04/25/22 05:00 Pulse 54 L 04/25/22 05:23 Resp 21 H 04/25/22 05:00 BP 111/69 04/25/22 05:00 Pulse Ox 97 04/25/22 05:00 O2 Del Method 04/25/22 05:00 Discharge Plan Discharge Patient Disposition: Home Condition: Stable Prescriptions: New atorvastatin 40 mg Tablet 80 mg PO DAILY Qty: 90 3RF nitroglycerin 0.4 mg Tablet, Sublingual 0.4 mg sublingual Q5M PRN (Reason: Chest Pain) Qty: 10 0RF chlorthalidone 25 mg Tablet 12.5 mg PO DAILY Qty: 90 0RF lisinopril 10 mg Tablet 10 mg PO DAILY Qty: 90 3RF aspirin 81 mg Tablet,Delayed Release (Dr/Ec) 81 mg PO DAILY Qty: 90 3RF clopidogrel 75 mg Tablet 75 mg PO DAILY Qty: 90 3RF amlodipine 5 mg tablet 5 mg PO DAILY Qty: 60 0RF Continued Tylenol Ex Str Rapid Release 500 mg Tablet 500 mg PO QID PRN (Reason: Pain) Nexium 40 mg Capsule,Delayed Release(Dr/Ec) 40 mg PO BID ProAir HFA 90 mcg/actuation Hfa Aerosol Inhaler 2 puff INHALATION QID PRN (Reason: Shortness Of Breath) terazosin 10 mg Capsule 10 mg PO QPM Discharge Orders: Discharge Order (Routine); Ordered 04/25/22 Ordered By: Deysi Linares Referrals: Jordan Fatima [Primary Care Provider] - Patient Instructions: Opioid Safety Discharge Attestations Time Spent in Discharge Care*: less than 30 min Quality Metrics Clinical Quality Measures [ No reported AMI, CVA or VTE this stay] Coding Level of Care Code Acute Code for [facility] Fwd Diagnoses Unstable angina I20.0 Non-ST elevation [place] (NSTEMI) I21.4
--- NOTE | 2022-04-25 07:27 | PM.PN ---
Subjective Subjective: Done he had a non-ST segment elevation NV with classic angina symptoms. He had an ostial LAD lesion which was stented yesterday. He is doing well today. The procedure was done from the right radial artery. He has not been started on a beta-zane due to bradycardia. Vitals/I&O/Wt Last Vital Signs Temp 97.7 F 04/25/22 05:00 Pulse 54 L 04/25/22 05:23 Resp 21 H 04/25/22 05:00 BP 111/69 04/25/22 05:00 Pulse Ox 97 04/25/22 05:00 O2 Del Method 04/25/22 05:00 04/24/22 04/25/22 04/25/22 22:59 06:59 14:59 Intake Total 360 / 360 1740 / 2100 Balance 360 / 360 1740 / 2100 Weight last 48 hrs Weight 202 lb Physical Exam Narrative: GENERAL: Awake alert in no distress HEENT: Exam within normal limits. NECK: Supple without jugular vein distention. The carotid upstroke is normal without bruits. BACK: Exam normal. LUNGS: Clear. HEART: Regular rate and rhythm. ABDOMEN: Benign without organomegaly or tenderness. EXTREMITIES: No edema. The right radial artery entry site is flat, dry without bleeding or hematoma. 2+ pulse. NEUROLOGIC: Exam normal. SKIN: Unremarkable. Data 04/24/22 10:45 04/25/22 04:43 A&P Assessment and plan (1) Non-ST elevation [place] (NSTEMI): (2) Stented coronary artery: (3) Essential hypertension: (4) CAD (coronary artery disease): Plan Patient may. I have placed his follow-up appointment requests in the discharge section of the chart. Restriction is no lifting over 5 pounds for 2 days. Attestations Medical Necessity Statement*: Discharge home and Moderate Time for a total of 20 minutes, includes reviewing past or interval history, examining/interviewing patient, placing orders, counseling patient/family/other support, updating patient/family/other support, documenting encounter and coordinating care Diagnoses Non-ST elevation NV (NSTEMI) I21.4 Stented coronary artery Z95.5 Essential hypertension I10 CAD (coronary artery disease) I25.10
[2022-04-25] MEDS: atorvastatin 40 mg Tablet 80 MG PO (08:14)
[2022-04-25] MEDS: chlorthalidone 25 mg Tablet 12.5 MG PO (08:14)
[2022-04-25] MEDS: aspirin 81 mg EC Tablet PO (08:14)
[2022-04-25] MEDS: lisinopril 10 mg Tablet PO (08:15)
[2022-04-25] MEDS: metoprolol tartrate 25 mg Tablet PO (08:15)
[2022-04-25] MEDS: pantoprazole DR 40 mg Tablet PO (08:15)
[2022-04-25] MEDS: clopidogrel 75 mg Tablet PO (08:15)
--- NOTE | 2022-04-25 09:12 | PC.SOCIAL ---
[facility]
--- NOTE | 2022-04-25 09:26 | PC.NURSE ---
Discharge medications sent to [facility] in [place], two weeks worth of meds were called in to [facility] so [facility]. Discharge education provided, patient IV removed. Patient is awaiting discharge. Patient started to feel dizzy and is going to eat breakfast prior to leaving. Nurse will continue to monitor.
--- NOTE | 2022-04-25 10:05 | PC.NURSE ---
Patient has become bradycardic and hypotensive. Physician notified. Will hold discharge until 12 and reevaluate.
--- NOTE | 2022-04-25 10:10 | PC.CHAP ---
Pastoral Care Encounter/Spiritual Assessment Type of Contact [] Declined erp implementation consultant visit [] Patient/Family/Request visit [] Outpatient visit [] Follow-up visit [] Physician referral [] Code/Alert [x] Routine visit [] Staff referral [] Actively dying [] Patient sleeping [x] Family support [] [] Out of room [] Palliative care [] [] Receiving care in room [] Pre-surgical visit [] Trauma [] Long length of stay [] ICU visit [] Other: Relational/Emotional Strength [x] Patient feels connected with others/family/visitors/staff [] Distress [] Loneliness/isolation [] Abandonment Spirituality of Patient [x] Person of Tawanna [] Attends Yazdanism of their Tawanna [x] Believes in Prayer [] Reads Bible or Sikh materials [] There are Spiritual issues to be addressed Welding Lead Burner Interventions [x] Prayer [] Active listening [] Non-anxious presence [] Spiritual/emotional support [] Crisis/trauma care [] Spiritual counseling [] Bereavement support [] Provided bereavement packet [] Provided Bible/devotional materials [] Provided toy/stuffed animal, coloring book to patient or family member [] Provided Communion [] Anointing/[place] [] Salvation [] Completed spiritual assessment [] Other: Impact on Illness or Injury [] Angry [] Fearful [] Anxious [] Often cries [] Exhaustion [] Unable to work [] Unable to attend orthodox [] Unable to walk/stand [] Unable to read [] Unable to drive [] Unable to eat/drink [] Unable to sleep [] Unable to be with family [] Patient intubated [] Other: Summary Time spent with patient 10 min
--- NOTE | 2022-04-25 11:34 | PM.PN ---
Vitals/I&O/Wt Last Vital Signs Temp 97.7 F 04/25/22 05:00 Pulse 54 L 04/25/22 05:23 Resp 21 H 04/25/22 05:00 BP 111/69 04/25/22 05:00 Pulse Ox 97 04/25/22 05:00 O2 Del Method 04/25/22 05:00 04/24/22 04/25/22 04/25/22 22:59 06:59 14:59 Intake Total 360 / 360 1740 / 2100 100 / 100 Balance 360 / 360 1740 / 2100 100 / 100 Weight last 48 hrs Weight 91.626 kg Data 04/24/22 10:45 04/25/22 04:43 Coding Level of Care Code Acute Code for Chg Fwd
--- NOTE | 2022-04-25 12:00 | PC.NURSE ---
Physician notified of decreased pulse and heart rate that has continued. Instructed to push oral fluids and keep another hour
--- NOTE | 2022-04-25 13:20 | PC.NURSE ---
Patient vital signs have improved, discontinued amlodipine from patient medications. Called [facility] in [facility] to cancel medication. Patient was d/c via private vehicle accompanied by spouse
[2022-04-25 13:27] VITALS: BP 106/72; PULSE 58; RESP 18; O2SAT 96
== END 2022-04-25 13:28 | disposition home or self-care (01) | DRG 247 ==
LOC: ER 11:47 → ER IP 12:53 → CSU 15:09
PROVIDERS: Internal Medicine Cardiovascular Disease; Admitting Provider Internal Medicine; Emergency Provider Family Medicine; PCP Internal Medicine; Visit Provider Internal Medicine
PROC: 027034Z Dilation of Coronary Artery, One Artery with Drug-eluting Intraluminal Device, Percutaneous Approach (ICD-10-PCS; principal; 2022-04-24 15:00)
PROC: 027034Z Dilation of Coronary Artery, One Artery with Drug-eluting Intraluminal Device, Percutaneous Approach (ICD-10-PCS; 2022-04-24 15:00)
DX: I21.4 Non-ST elevation (NSTEMI) myocardial infarction (principal); I25.110 Atherosclerotic heart disease of native coronary artery with unstable angina pectoris; I10 Essential (primary) hypertension; Z87.891 Personal history of nicotine dependence
CPT/HCPCS: 36415; 71045; 80048; 80053; 83036; 83735; 84484; 85025; 85378; 93005; 93306; 93458; 96365; 96372; 99152; 99153; 99285; C1769; C1874; C1887; C1894; C9600; G0378; J1644; J1650; J2250; J3010; J3490; J7030; Q9967

== ENCOUNTER → 2022-05-12 08:50 | Outpatient (BNVA) | payer OTHER, SELFPAY | PROVIDERS: PCP Family Medicine; Visit Provider Nurse Practitioner Family | DX: I25.10 Atherosclerotic heart disease of native coronary artery without angina pectoris (principal); I10 Essential (primary) hypertension | CPT/HCPCS: 36415; 71046; 80048; 83880; 99214 ==

== ENCOUNTER 2022-06-09 09:20 | Outpatient (CLI) | payer OTHER, SELFPAY ==
--- NOTE | 2022-06-09 09:36 | USCV_ITS ---
Costa Aguilar Age: 76 Gender: M : 1945 Exam Date: 06/09/2022 10:06 Ordering Phys: Baldemar Villatoro Technologist: Uche Diaz Exam Location: [facility] [place] Indication: coronary artery disease BP: 140 / 80 HR: 68 Rhythm: Sinus Technical Quality: Adequate MEASUREMENTS (Male / Female) Normal Values 2D ECHO LVOT Diameter 2.0 cm LV Ejection Fraction MOD 2C 64.5 % LV Ejection Fraction 2C AL 65.2 % LA Diameter 3.3 cm LA Width 3.1 cm LA Height 4.8 cm RA Width 2.2 cm RA Height 5.1 cm Aorta at Sinotubular Diameter 2.8 cm M-MODE Aortic Annulus Diameter 3.1 cm LA Ao Ratio MM 1.0 MV E Point Septal Separation 0.4 cm DOPPLER AV Peak Velocity 128.0 cm/s LVOT Peak Velocity 122.0 cm/s AV Area Cont Eq vti 2.8 cm squared AV Area Cont Eq pk 3.1 cm squared MV Peak Velocity 99.0 cm/s MV Area PHT 4.3 cm squared Mitral E to A Ratio 0.8 MV E' Velocity 43.0 cm/s Mitral E to MV E' Ratio 7.0 Mitral E to LV E' Lateral Ratio 5.6 Mitral E to LV E' Septal Ratio 9.4 TR Peak Velocity 248.4 cm/s TR Peak Gradient 24.7 mmHg TR Mean Velocity 194.5 cm/s TR Mean Gradient 15.9 mmHg TR Velocity Time Integral 62.1 cm Right Atrial Pressure 8.0 mmHg Pulmonary Artery Systolic Pressu 32.7 mmHg PV Peak Velocity 142.0 cm/s RV Acceleration Time 0.1 s RV Ejection Time 0.3 s RV AcT/ET 0.4 FINDINGS Left Ventricle Left ventricle is normal in size. LV systolic function is normal with EF 60 to 65%. No regional wall motion abnormalities are seen. Grade 1 diastolic dysfunction Right Ventricle Normal in size and function Right Atrium Normal in size. Interatrial septum is aneurysmal Left Atrium Normal in size Mitral Valve Structurally normal mitral valve. Trace mitral regurgitation. Aortic Valve Structurally normal aortic valve.No significant stenosis. Mild to moderate aortic regurgitation. Tricuspid Valve Mild tricuspid regurgitation. RVSP is 30 to 35%. Pulmonic Valve Not well-visualized Pericardium Normal Aorta Normal in size IVC Appears to be normal CONCLUSIONS LV systolic function is normal with EF of 60 to 60% Grade 1 diastolic dysfunction Interatrial septum is aneurysmal Trace mitral regurgitation Moderate aortic regurgitation Mild tricuspid regurgitation. Compared to prior echocardiogram from 04/2022, no significant changes are seen Yann Vick MD (Electronically Signed) Final Date: 14 June 2022 16:48 S
== END 2022-06-09 09:21 | disposition home or self-care (01) ==
LOC: RAD 09:25
PROVIDERS: PCP Family Medicine; Visit Provider Chiropractor
DX: I25.10 Atherosclerotic heart disease of native coronary artery without angina pectoris (principal); I35.1 Nonrheumatic aortic (valve) insufficiency
CPT/HCPCS: 93306

== ENCOUNTER → 2022-06-23 10:47 | Outpatient (BNVA) | payer OTHER, SELFPAY | PROVIDERS: PCP Family Medicine; Visit Provider Internal Medicine Cardiovascular Disease | DX: I25.10 Atherosclerotic heart disease of native coronary artery without angina pectoris (principal); I10 Essential (primary) hypertension; R06.02 Shortness of breath; R53.83 Other fatigue; Z79.82 Long term (current) use of aspirin | CPT/HCPCS: 99213 ==

== ENCOUNTER 2022-06-26 05:35 | Outpatient (CLI) | payer OTHER, SELFPAY ==
[2022-06-25 09:16] VITALS: BMI 29.2
[2022-06-26] VITALS (16 sets, daily range): BP systolic 117–144; BP diastolic 56–80; PULSE 60–72; RESP 13–17; TEMP 37; O2SAT 94–97
--- NOTE | 2022-06-26 06:00 | XACV_ITS ---
Exam Room: 2 Ht: 175 cm Wt: 90 kg BSA: 2.11 m2 Gender: Male : 1945 Any Known Allergies: No known allergies Exam Priority: Routine Procedure(s): Procedure Description: Diagnostic procedure Procedure Description: Coronary Angiography Vesna VOGT; Diagnostic Cath Status: Elective Diagnostic Findings * Patient recently had a stent placed to the LAD with fairly typical symptoms prior to that. Since then he has been fatigued, tired all the time and has disabling shortness of breath. I saw him in the office and he wanted repeat angiography because he has concerns that the stent is closing. * Coronary angiography reveals right coronary artery dominance. The left main is normal and trifurcates into the LAD, circumflex and ramus intermedius. The stent placed in the proximal LAD is widely patent. There is normal flow throughout the vessel. The remainder of the vessel is normal. The ramus intermedius is normal. The circumflex is likewise normal with minor diffuse luminal irregularities. The right coronary artery is a very large dominant vessel and is normal. Conclusions 1. Normal coronary arteries with minor luminal irregularities status post stent placement. Pressures Phase:Rest AO : 91 / 72 ( 81 ) @ 8:10:00 AM Clinical Evaluation EBL: 5mL-10mL Procedural Details Procedure Consent Obtained. Pre-Procedure Time Out. Identified patient by full name and date of as verbalized by the patient/guarantor. Does the consent match the physician's order: Yes. Accurate & Complete Informed Consent: Yes. Inpatient/Outpatient History & Physical on Chart: Yes. If H&P is completed, is and addenduem needed: Yes; If yes, is the addendum complete: Yes. Visualize and Verify Site with Patient/Guarantor: N/A. Relevant Radiology Images available: Yes. The risks, benefits, and alternatives of sedation and/or procedure were discussed by physician. The patient agrees to continue. Procedure started. [facility] Clinical Fraility Score: 3: Managing Well. Shop Hand Indications: Suspected CAD. Chest Pain Symptom Assessment: Atypical Angina. Cardiovascular Instability: No. Correct patient, site and procedure confirmed by cath team. PERRLA. Strong, equal hand digital editor bilaterally. Lungs clear x 5 lobes. IV Site on Arrival: 20 gauge in the right anticubital. IV Fluids: 0.9% NaCl at KVO. 0 mL infused prior to lab analyst. Pre Procedural Pulses: bilateral dorsalis pedis was Doppled. Pre Procedural Pulses: bilateral posterior tibial was Doppled. Pre Procedural Pulses: bilateral radial was 3+. Oxygen started at 2liters/min via nasal canula. right groin was prepped with chloroprep then draped in the usual sterile fashion. right radial was prepped with chloroprep then draped in the usual sterile fashion. Physician notified. Baseline sample Acquired. HR: 57 BPM. Patient's family in CPRU room #4. Dr. Malagon will update at the completion of the procedure. Equipment: 6F - Radial. Cardiac Cath Pack. ACIST Manifold Kit Model BT 2000. Heparinized Saline (2 units/mL), 1000 mL bag. Physician arrived. Physician scrubbed in. Immediate Pre-Procedure Time Out. Correct Patient: Yes; Correct Procedure: Yes; Correct Site: Yes; Correct Patient Position: Yes; Correct Supplies: Yes; Dried Flammable Prep: Yes; Blood Products Available: N/A;. Lidocaine 1% infiltrated to the right radial. Arterial access obtained. A 5 khmer TIG catheter in over exchange J wire. Multiple views taken of left coronary artery. Catheter redirected to the RCA. Multiple views taken of right coronary artery. Catheter removed over the exchange J wire. Dr. Malagon scrubbed out. A TR Band was successful obtaining hemostatsis at the Right Radial artery insertion site. TR band placed. Hemostasis obtained. Post Procedure: Pulses reassessed and unchanged. PERRLA. Strong, equal hand digital editor bilaterally. No VTE prophylaxis required. Medication's Wasted: Lidocaine 1% = 1 mL. Medication's Wasted: Nitro = 49.8 mg. Medication's Wasted: Heparin = 1000 units. Medication's Wasted: Other = Versed mg. Medication's Wasted: Other = Fentanyl 50 mcg. Total IV fluids: 22 mL. Post-op diagnosis: Non obstructive CAD. Complications: none. Estimated blood loss: 5mL-10mL. Responsiveness - Normal response to verbal stimuli; alert and oriented, PERRLA. Airway - Unaffected, no intervention required; spontaneous ventilation. Circulation: W/N/L, pulses unchanged. Nausea/Vomiting: No. Procedure completed. Patient transferred by wheelchair to CPRU. Vital chart was stopped. Access Site Site: Right Radial artery Sheath Size: 6 Fr Hemostasis Method: TR Band Hemostasis Success: Successful Procedure Medications Start: 7:10 AM Stop: 7:10 AM Medication: Heparin Amount: 5000 units Route: I.V. Start: 7:05 AM Stop: 7:05 AM Medication: Versed Amount: 1 mg Route: I.V. Start: 7:05 AM Stop: 7:05 AM Medication: Fentanyl Amount: 50 mcg Route: I.V. I, the attending physician, have reviewed and verified all procedure medications. Yes, all medications given per verbal order History/Risk Factors Hypertension: Yes Dyslipidemia: No Peripheral Arterial Disease (PAD): No Myocardial Infarction (WA): No Obesity: No Renal Disease: No Tobacco Use: Never Prior Interventions PCI: Yes CABG: No Valve Surgery: No Date of PCI: 04/24/2022 Report Signatures Finalized by Dr. Trever Malagon MD on 06/26/2022 07:40 AM
[2022-06-26 06:27] LABS: Basophils # 0.1 10^3/uL (0.0-0.1); Basophils % 1.4 %; Eosinophils # 0.4 10^3/uL (0.0-0.8); Hematocrit 35.2 % (42.0-52.0); Hemoglobin 12.2 g/dL (11.7-16.6); Lymphocytes % 21.3 %; Mean Corpuscular HGB Conc 34.7 g/dL (30.0-36.0); Mean Corpuscular Volume 86.7 fl (80-94); Mean Platelet Volume 9.5 fL (7.4-10.4); Monocytes # 0.6 10^3/uL (0.2-0.9); Monocytes % 11.9 %; Neutrophils # 2.79 10^3/uL (1.8-7.7); Neutrophils % 57.2 %; Nucleated Red Blood Cells % 0 %; Platelet Count 166 10^3/cmm (130-400); Red Blood Count 4.06 10^6/uL (4.1-5.3); Red Cell Distribution Width 11.8 % (12.1-15.1); White Blood Count 4.9 10^3/uL (4.0-10.0)
[2022-06-26] MEDS: diphenhydrAMINE 50 mg Capsule PO (06:30)
[2022-06-26 06:51] LABS: Anion Gap 13.8 (5-19); Blood Urea Nitrogen 18 mg/dL (8-23); Calcium 9.1 mg/dL (8.5-10.5); Carbon Dioxide 26 mmol/L (22-29); Chloride 100 mmol/L (98-107); Glucose 96 mg/dL (65-115); Osmolality Calculated 284 mOsm/kg (285-295); Potassium 3.8 mmol/L (3.5-5.1); Sodium 136 mmol/L (136-145)
--- NOTE | 2022-06-26 07:20 | SUR.PHASEII ---
POST CATH NOTE Patient brought back from color laboratory technician. Status post cardiac catheterization via the right radial approach. TR Band in place with no s/s of bleeding or hematoma noted. Verbal post cath instructions given to the patient/family. They understoood instuction well. Acess and vital assessments per flowsheets. Call light in reach. Informed to call for needs.
--- NOTE | 2022-06-26 07:26 | W.PM.OPSUD ---
Surgery/Procedure H&P Update DATE OF PROCEDURE: June 26, 2022 DATE H&P PERFORMED: 06/23/22 H&P UPDATE INFORMATION: I have reviewed H&P completed within last 30 days, I have examined patient prior to procedure, No changes to prior documentation and H[place] is in [facility] [place] date indicated CHANGES TO PREVIOUS DOCUMENTATION: None PRIMARY INDICATION FOR PROCEDURE: Persistent SOB and fatigue S/P stent placement PLANNED PROCEDURE: Operation Date: 06/26/22 07:00 Proposed Procedures p [facility] w/-w/[id number],I10,I25.10(Left) - Trever Malagon MD
--- NOTE | 2022-06-26 07:49 | SUR.PHASEII ---
POST CATH IV FLUIDS Patient receiving IV fluids 0.9% NS at 100 ml/hr as ordered.
--- NOTE | 2022-06-26 09:52 | SUR.PHASEII ---
TR BAND Band deflated. No issues with hematoma noted. Verbal post cath instructions given. Verbalized understanding.
--- NOTE | 2022-06-26 10:08 | PM.DCS ---
Discharge Providers Date of Admission: June 26, 2022 Date of Discharge: June 26, 2022 Attending Provider at Admission: craig Attending Provider at Discharge: Trever Malagon MD Primary Care Provider: Denise Toro MD Diagnoses at Discharge Discharge Diagnosis (1) Fatigue: Status: Acute (2) SOB (shortness of breath): Status: Acute (3) Essential hypertension: Status: Acute (4) CAD (coronary artery disease): Status: Acute (5) Stented coronary artery: Status: Acute Reason for Visit Reason for Visit: I25.10 Brief History: Patient had a non-ST segment elevation [place] in the recent past. He had a very tight proximal LAD lesion which was stented. There was no other disease in other vessels. He did well post discharge but began to have disabling shortness of breath and fatigue. He even visited the emergency room at the [facility] in [facility] a couple weeks ago and they were traveling up that way. Nothing was found in the emergency room. He came to see me just a couple of days ago in the office as an emergency visit because of the disabling shortness of breath. He was worried about his heart so we scheduled him for coronary angiography. Hospital Course Hospital Course Angiography was done from the right radial artery. His arteries are patent. The stent is patent. The procedure was uncomplicated. Physical Exam Narrative: GENERAL: In general he looks and feels well HEENT: Exam within normal limits. NECK: Supple without jugular vein distention. The carotid upstroke is normal without bruits. BACK: Exam normal. LUNGS: Clear. HEART: Regular rate and rhythm. ABDOMEN: Benign without organomegaly or tenderness. EXTREMITIES: No edema. The right radial artery area is flat, dry without bleeding or hematoma at the time of discharge. There is a right radial pulse. NEUROLOGIC: Exam normal. SKIN: Unremarkable. Discharge Data Studies Completed and Pending Completed Studies During Hospitalization Category Date Time Status FREELANCE PHOTOGRAPHER request for service Routine Exams 06/26/22 06:00 Completed Laboratory Results WBC 4.9 10^3/uL (4.0-10.0) 06/26/22 06:21 RBC 4.06 10^6/uL (4.1-5.3) L 06/26/22 06:21 Hgb 12.2 g/dL (11.7-16.6) 06/26/22 06:21 Hct 35.2 % (42.0-52.0) L 06/26/22 06:21 MCV 86.7 fl (80-94) 06/26/22 06:21 MCH 30.0 pg (28.0-34.0) 06/26/22 06:21 MCHC 34.7 g/dL (30.0-36.0) 06/26/22 06:21 RDW 11.8 % (12.1-15.1) L 06/26/22 06:21 Plt Count 166 10^3/cmm (130-400) 06/26/22 06:21 MPV 9.5 fL (7.4-10.4) 06/26/22 06:21 Neut % (Auto) 57.2 % 06/26/22 06:21 Lymph % (Auto) 21.3 % 06/26/22 06:21 Bucks % (Auto) 11.9 % 06/26/22 06:21 Eos % (Auto) 8.0 % 06/26/22 06:21 Baso % (Auto) 1.4 % 06/26/22 06:21 Neut # (Auto) 2.79 10^3/uL (1.8-7.7) 06/26/22 06:21 Lymph # (Auto) 1.0 10^3/uL (0.8-4.8) 06/26/22 06:21 Bucks # (Auto) 0.6 10^3/uL (0.2-0.9) 06/26/22 06:21 Eos # (Auto) 0.4 10^3/uL (0.0-0.8) 06/26/22 06:21 Baso # (Auto) 0.1 10^3/uL (0.0-0.1) 06/26/22 06:21 Nucleated RBC % (auto) 0 % 06/26/22 06:21 Nucleated RBCs # 0.0 /100WBC 06/26/22 06:21 Sodium 136 mmol/L (136-145) 06/26/22 06:21 Potassium 3.8 mmol/L (3.5-5.1) 06/26/22 06:21 Chloride 100 mmol/L (98-107) 06/26/22 06:21 Carbon Dioxide 26 mmol/L (22-29) 06/26/22 06:21 Anion Gap 13.8 (5-19) 06/26/22 06:21 BUN 18 mg/dL (8-23) 06/26/22 06:21 Creatinine 0.8 mg/dL (0.7-1.2) 06/26/22 06:21 GFR Calculation Not Reportable 06/26/22 06:21 Glucose 96 mg/dL (65-115) 06/26/22 06:21 Calculated Osmolality 284 mOsm/kg (285-295) L 06/26/22 06:21 Calcium 9.1 mg/dL (8.5-10.5) 06/26/22 06:21 Procedures Performed Coronary angiography Vitals Last Vital Signs Temp 98.6 F 06/26/22 06:40 Pulse 63 06/26/22 09:30 Resp 16 06/26/22 09:30 BP 124/56 06/26/22 09:30 Pulse Ox 95 06/26/22 09:30 O2 Del Method Room Air 06/26/22 09:45 Discharge Plan Discharge Patient Disposition: Home Prescriptions: Continued losartan 25 mg tablet 50 mg PO DAILY pantoprazole 40 mg tablet,delayed release (DR/EC) 40 mg PO BID ketoconazole 2 % cream 1 applic topical BID Qty: 30 6RF Rx Instructions: Apply to red scaly areas of the face 1-2 times daily. ketoconazole 2 % shampoo 1 applic topical ONCE Qty: 120 2RF Rx Instructions: Use as body wash and allow to sit 5 minutes before rinsing. Repeat daily for 21 days, then as needed for flares. acetaminophen 500 mg Tablet 500 mg PO QID PRN (Reason: Pain) albuterol sulfate [ProAir HFA] 90 mcg/actuation Hfa Aerosol Inhaler 2 puff INHALATION QID PRN (Reason: Shortness Of Breath) terazosin 10 mg Capsule 10 mg PO QPM atorvastatin 40 mg Tablet 80 mg PO DAILY Qty: 90 3RF clopidogrel 75 mg Tablet 75 mg PO DAILY Qty: 90 3RF chlorthalidone 25 mg Tablet 12.5 mg PO DAILY Qty: 90 0RF aspirin 81 mg Tablet,Delayed Release (Dr/Ec) 81 mg PO DAILY Qty: 90 3RF nitroglycerin 0.4 mg Tablet, Sublingual 0.4 mg sublingual Q5M PRN (Reason: Chest Pain) Qty: 10 0RF Discharge Orders: Discharge Order (Routine); Ordered 06/26/22 Ordered By: Trever Malagon Referrals: Trever Malagon MD [Physician] - 2 months (If an appointment is already scheduled, keep it.) Diet: Usual diet and Cardiac Activity: Limit activity as instructed Patient Instructions: Midazolam (By injection), Moderate Sedation (DC), Heart Catheterization (DC), After Radial Heart Catheterization (GEN), Left Heart Catheterization (DC) Activity Restrictions/Additional Instructions: No lifting over 5 pounds for 2 days with the right arm. No driving a vehicle today. Discharge Attestations Time Spent in Discharge Care*: less than 30 min Quality Metrics Clinical Quality Measures [ No reported AMI, CVA or VTE this stay] Coding Level of Care Code 45781 Total time (in minutes) for Discharge: 25 Diagnoses Fatigue R53.83 SOB (shortness of breath) R06.02 Essential hypertension I10 CAD (coronary artery disease) I25.10 Stented coronary artery Z95.5
== END 2022-06-26 11:40 | disposition home or self-care (01) ==
PROVIDERS: PCP Family Medicine; Visit Provider Internal Medicine Cardiovascular Disease
DX: R06.02 Shortness of breath (principal); R53.83 Other fatigue; I25.10 Atherosclerotic heart disease of native coronary artery without angina pectoris; I10 Essential (primary) hypertension; Z95.5 Presence of coronary angioplasty implant and graft; I25.2 Old myocardial infarction; Z79.02 Long term (current) use of antithrombotics/antiplatelets; Z79.82 Long term (current) use of aspirin
CPT/HCPCS: 36415; 80048; 85025; 93454; 96361; 96365; 99152; C1769; C1887; C1894; J1644; J2250; J3010; J3490; J7030; Q0163; Q9967

== ENCOUNTER → 2022-07-15 08:26 | Outpatient (BNVA) | payer OTHER, SELFPAY | PROVIDERS: PCP Family Medicine; Referring Provider Family Medicine; Visit Provider Orthopaedic Surgery | DX: M48.062 Spinal stenosis, lumbar region with neurogenic claudication (principal) | CPT/HCPCS: 72120; 99204 ==

== ENCOUNTER → 2022-07-22 14:11 | Outpatient (BNVA) | payer OTHER, SELFPAY | PROVIDERS: PCP Family Medicine; Visit Provider Nurse Practitioner Family | DX: I25.10 Atherosclerotic heart disease of native coronary artery without angina pectoris (principal); I10 Essential (primary) hypertension; Z95.5 Presence of coronary angioplasty implant and graft | CPT/HCPCS: 99214 ==

== ENCOUNTER 2022-07-31 13:32 | Outpatient (CLI) | payer OTHER, SELFPAY ==
--- NOTE | 2022-07-31 13:45 | MR_ITS ---
WS: [id number] MRI LUMBAR SPINE NONCONTRAST TECHNIQUE: Sagittal T1, T2 and STIR imaging. Axial T1 and T2 imaging. CLINICAL INFORMATION: low back pain with radiculopathy COMPARISON: None. FINDINGS: Mild lumbar curve. No acute compression. No high-grade central canal stenosis. Slight retrolisthesis L2 on L3 and L3 on L4 worse at L3-L4 with endplate degenerative changes. Mild central canal stenosis tcervical spine biztalk software developer imaging at C4-C6. L1-L2: Minimal disc bulging. Mild facet arthropathy. Spinal canal and foramen are patent. L2-L3: Mild disc bulging with osteophytic ridging. Mild central canal stenosis. Mild facet arthropath y. Mild RIGHT greater than LEFT foraminal narrowing. L3-L4: Mild disc osteophyte complex with endplate ridging. Tiny annular fissure. Mild LEFT and no sig nificant RIGHT foraminal narrowing. Mild central canal stenosis. Mild facet arthropathy. L4-L5: Mild annular bulging. Mild facet arthropathy. Slight impingement on the traversing LEFT greate r than RIGHT L5 nerve roots. Mild facet arthropathy. Foramen are patent. L5-S1: Mild annular bulging. Slight effacement of ventral thecal sac. Spinal canal and foramen are pa tent. Mild facet arthropathy. Visualized pelvic bony structures: Normal. Paravertebral soft tissues: Normal. MR/MR lumbar spine wo con* [id number] IMPRESSION: 1. Mild lumbar curve. No acute compression. 2. Mild central canal stenosis L2-L3, L3-L4, and L4-L5 due to disc bulging wit h facet arthropathy ligamentum flavum hypertrophy. 3. RIGHT foraminal protrusion L2-L3 impinges the exiting RIGHT L2 nerve root l aterally. 4. Mild LEFT L3-L4 foraminal narrowing with contact exiting LEFT L3 nerve root .
== END 2022-07-31 13:33 | disposition home or self-care (01) ==
PROVIDERS: PCP Family Medicine; Visit Provider Orthopaedic Surgery
DX: M48.061 Spinal stenosis, lumbar region without neurogenic claudication (principal); M51.26 Other intervertebral disc displacement, lumbar region
CPT/HCPCS: 72148

== ENCOUNTER → 2022-08-28 09:58 | Outpatient (BNVA) | payer OTHER, SELFPAY | PROVIDERS: PCP Family Medicine; Visit Provider Orthopaedic Surgery | DX: M48.062 Spinal stenosis, lumbar region with neurogenic claudication (principal) | CPT/HCPCS: 99214 ==

== ENCOUNTER → 2022-09-02 11:20 | Outpatient (BNVA) | payer OTHER, SELFPAY | PROVIDERS: PCP Family Medicine; Visit Provider Internal Medicine Cardiovascular Disease | DX: I25.10 Atherosclerotic heart disease of native coronary artery without angina pectoris (principal); Z95.5 Presence of coronary angioplasty implant and graft; M48.062 Spinal stenosis, lumbar region with neurogenic claudication; R53.83 Other fatigue; R06.02 Shortness of breath; I10 Essential (primary) hypertension | CPT/HCPCS: 99214 ==

== ENCOUNTER → 2022-09-19 08:10 | Outpatient (BNVA) | payer OTHER, SELFPAY | PROVIDERS: PCP Family Medicine; Visit Provider Internal Medicine Pulmonary Disease | DX: R06.09 Other forms of dyspnea (principal); Z87.891 Personal history of nicotine dependence; Z95.5 Presence of coronary angioplasty implant and graft | CPT/HCPCS: 36415; 80053; 82785; 85025; 85651; 86003; 86140; 99204 ==

== ENCOUNTER 2022-10-07 07:33 | Outpatient (CLI) | payer OTHER, SELFPAY | END 2022-10-07 07:34 | disposition home or self-care (01) | LOC: RT 07:33 | PROVIDERS: PCP Family Medicine; Visit Provider Internal Medicine Pulmonary Disease | DX: R06.02 Shortness of breath (principal) | CPT/HCPCS: 94010; 94726; 94729 ==

== ENCOUNTER 2022-10-08 10:07 | Outpatient (CLI) | payer OTHER, SELFPAY ==
--- NOTE | 2022-10-08 10:00 | CT_ITS ---
WS: [id number] CT CHEST TECHNIQUE: Noncontrast CT of the chest with coronal and sagittal reformatted images. CLINICAL INFORMATION: SOB and wheezing new pt COMPARISON: None. DLP: 284.[address] scans at [facility] use at least one of these dose optimization techniques: automated e xposure control; mA and/or kV adjustment per patient size (includes targeted exams where dose is matc hed to clinical indication); or iterative reconstruction. FINDINGS: Normal caliber thoracic aorta. Coronary calcification. No mediastinal or hilar lymphadenopathy. Coron anay stent. No axillary lymphadenopathy. Normal GE junction. Splenic artery calcification. Adrenal glands are normal. Hypertrophic changes tho racic spine. Few tiny noncalcified nodules in the RIGHT middle lobe measuring 3 to 4 mm. Tiny nodule LEFT upper lo be laterally. Few calcified granulomas. No acute pulmonary infiltrates. No evidence of interstitial lung disease. IMPRESSION: 1. No acute pulmonary infiltrates. No evidence of interstitial lung disease. 2. A few tiny noncalcified nodules in the RIGHT middle lobe and LEFT upper lobe. Recommend 12-month chest CT follow-up. 3. No other suspicious findings.
== END 2022-10-08 10:08 | disposition home or self-care (01) ==
LOC: RAD 10:10
PROVIDERS: PCP Family Medicine; Visit Provider Internal Medicine Pulmonary Disease
DX: R06.09 Other forms of dyspnea (principal); R06.2 Wheezing; Z87.891 Personal history of nicotine dependence; R91.8 Other nonspecific abnormal finding of lung field
CPT/HCPCS: 71250

== ENCOUNTER → 2022-10-09 08:34 | Outpatient (BNVA) | payer OTHER, SELFPAY | PROVIDERS: PCP Family Medicine; Visit Provider Anesthesiology Pain Medicine | DX: M48.062 Spinal stenosis, lumbar region with neurogenic claudication (principal); M47.816 Spondylosis without myelopathy or radiculopathy, lumbar region; M51.16 Intervertebral disc disorders with radiculopathy, lumbar region; M48.061 Spinal stenosis, lumbar region without neurogenic claudication | CPT/HCPCS: 99204 ==

== ENCOUNTER → 2022-10-23 12:39 | Outpatient (BNVA) | payer OTHER, SELFPAY | PROVIDERS: PCP Family Medicine; Visit Provider Anesthesiology Pain Medicine | DX: M54.16 Radiculopathy, lumbar region (principal); M48.062 Spinal stenosis, lumbar region with neurogenic claudication | CPT/HCPCS: 64483; 64484; J1100; J3490 ==

== ENCOUNTER → 2022-11-07 08:33 | Outpatient (BNVA) | payer OTHER, SELFPAY | PROVIDERS: PCP Family Medicine; Visit Provider Internal Medicine Pulmonary Disease | DX: J82.83 Eosinophilic asthma (principal); Z87.891 Personal history of nicotine dependence; Z95.5 Presence of coronary angioplasty implant and graft; R91.8 Other nonspecific abnormal finding of lung field | CPT/HCPCS: 99214 ==

== ENCOUNTER → 2022-11-11 14:43 | Outpatient (BNVA) | payer OTHER, SELFPAY | PROVIDERS: PCP Family Medicine; Visit Provider Anesthesiology Pain Medicine | DX: M54.16 Radiculopathy, lumbar region (principal); M48.062 Spinal stenosis, lumbar region with neurogenic claudication | CPT/HCPCS: 64483; 64484 ==

== ENCOUNTER → 2022-11-25 09:58 | Outpatient (BNVA) | payer OTHER, SELFPAY | PROVIDERS: PCP Family Medicine; Visit Provider Anesthesiology Pain Medicine | DX: M48.062 Spinal stenosis, lumbar region with neurogenic claudication (principal); M47.816 Spondylosis without myelopathy or radiculopathy, lumbar region; M51.16 Intervertebral disc disorders with radiculopathy, lumbar region; M48.061 Spinal stenosis, lumbar region without neurogenic claudication | CPT/HCPCS: 99214 ==

== ENCOUNTER → 2022-12-04 10:28 | Outpatient (BNVA) | payer OTHER, SELFPAY | PROVIDERS: PCP Family Medicine; Visit Provider Orthopaedic Surgery | DX: M48.062 Spinal stenosis, lumbar region with neurogenic claudication | CPT/HCPCS: 99214 ==

== ENCOUNTER 2023-01-13 08:51 | Outpatient (CLI) | payer OTHER, SELFPAY ==
[2023-01-13 09:26] LABS: Add Urine Microscopic? NO; Charge for UA Resulting for Rev
[2023-01-13 09:30] LABS: Basophils # 0.1 10^3/uL (0.0-0.1); Basophils % 1.6 %; Eosinophils # 0.2 10^3/uL (0.0-0.8); Eosinophils % 5.5 %; Hematocrit 38.8 % (37-53); Lymphocytes # 0.9 10^3/uL (0.8-4.8); Lymphocytes % 24.4 %; Mean Corpuscular HGB Conc 34.3 g/dL (30-55); Mean Corpuscular Hemoglobin 30.8 pg (27-33); Mean Corpuscular Volume 89.8 fl (82-101); Mean Platelet Volume 9.8 fL (7.4-10.4); Monocytes # 0.6 10^3/uL (0.2-0.9); Monocytes % 15.1 %; Neutrophils # 1.94 10^3/uL (1.8-7.7); Neutrophils % 53.1 %; Nucleated Red Blood Cells % 0 %; Platelet Count 170 10^3/cmm (157-399); Red Blood Count 4.32 10^6/uL (3.85-5.65); White Blood Count 3.65 10^3/uL (3.29-11.43)
[2023-01-13 09:39] LABS: Bilirubin Urine Neg (Negative); Blood Urine Neg (Negative); Glucose Urine UA Norm (Normal); Ketones Urine Negative (Negative); Leukocyte Esterase Urine Negative (Negative); Nitrate Urine Negative (Negative); Protein Urine Neg (Negative); Urine Appearance Clear (CLEAR); Urine Color Yellow (Yellow); Urobilinogen Urine Norm (Negative); pH Urine 5 (5-7)
[2023-01-13 09:57] LABS: Alanine Aminotransferase 20 U/L (0-41); Albumin Level 4.3 g/dL (3.5-5.2); Alkaline Phosphatase 100 U/L (40-130); Anion Gap 14.4 (5-19); Aspartate Amino Transferase 20 U/L (0-40); Blood Urea Nitrogen 15 mg/dL (8-23); Calcium 9.3 mg/dL (8.5-10.5); Carbon Dioxide 27 mmol/L (22-29); Chloride 104 mmol/L (98-107); Globulin 1.7 g/dL (1.3-4.6); Glucose 100 mg/dL (65-115); Osmolality Calculated 293 mOsm/kg (285-295); Potassium 4.4 mmol/L (3.5-5.1); Sodium 141 mmol/L (136-145)
[2023-01-13 10:06] LABS: Estmated Average Glucose 94; Hemoglobin A1C 4.9 % (4.0-6.0)
== END 2023-01-13 08:52 | disposition home or self-care (01) ==
LOC: LAB 08:54
PROVIDERS: PCP Family Medicine; Visit Provider Orthopaedic Surgery
DX: M48.062 Spinal stenosis, lumbar region with neurogenic claudication (principal)
CPT/HCPCS: 36415; 80053; 81003; 83036; 85025

== ENCOUNTER → 2023-01-15 15:16 | Outpatient (BNVA) | payer OTHER, SELFPAY | PROVIDERS: PCP Family Medicine; Visit Provider Family Medicine | DX: Z01.818 Encounter for other preprocedural examination (principal) | CPT/HCPCS: 93005 ==

== ENCOUNTER → 2023-03-03 11:20 | Outpatient (BNVA) | payer OTHER, SELFPAY | PROVIDERS: PCP Family Medicine; Visit Provider Nurse Practitioner Family | DX: I25.10 Atherosclerotic heart disease of native coronary artery without angina pectoris (principal); I10 Essential (primary) hypertension; Z87.891 Personal history of nicotine dependence | CPT/HCPCS: 99214 ==

== ENCOUNTER → 2023-03-24 14:21 | Outpatient (BNVA) | payer OTHER, SELFPAY | PROVIDERS: PCP Family Medicine; Visit Provider Orthopaedic Surgery | DX: M48.062 Spinal stenosis, lumbar region with neurogenic claudication (principal); Z79.02 Long term (current) use of antithrombotics/antiplatelets | CPT/HCPCS: 99214 ==

== ENCOUNTER → 2023-04-29 11:02 | Outpatient (BNVA) | payer OTHER, SELFPAY | PROVIDERS: PCP Family Medicine; Visit Provider Internal Medicine Pulmonary Disease | DX: J82.83 Eosinophilic asthma (principal); Z87.891 Personal history of nicotine dependence; Z95.5 Presence of coronary angioplasty implant and graft; R91.8 Other nonspecific abnormal finding of lung field | CPT/HCPCS: 99214 ==

== ENCOUNTER → 2023-06-23 13:55 | Outpatient (BNVA) | payer OTHER, SELFPAY | PROVIDERS: PCP Family Medicine; Visit Provider Orthopaedic Surgery | DX: M48.062 Spinal stenosis, lumbar region with neurogenic claudication; M51.16 Intervertebral disc disorders with radiculopathy, lumbar region; M54.9 Dorsalgia, unspecified | CPT/HCPCS: 36415; 72110; 80053; 81003; 85025; 99214 ==

== ENCOUNTER 2023-07-10 09:40 | Day surgery (SDC) | payer OTHER, SELFPAY ==
[2023-07-10] VITALS (10 sets, daily range): BP systolic 129–158; BP diastolic 68–80; PULSE 82–98; RESP 17–18; TEMP 36.5–37.1; O2SAT 91–97; BMI 29.0
--- NOTE | 2023-07-10 | XR_ITS ---
WS: [id number] Exam: XR lumbar spine 2-3V* [id number] Date/Time of Exam: 07/10/2023 12:00 AM Reason For Exam: RHETT PICS AP C-arm images of the lumbar spine are obtained for preoperative localization purposes.
--- NOTE | 2023-07-10 10:10 | ECG_ITS ---
[facility] Test Date: 2023-07-10 Pat Name: Costa Aguilar Department: Room: Gender: Male Information Consultant: : 1945 Requested By: Becki Bailey Order Number: [id number] Wade MD: Yann Vick M.D. Measurements Intervals [place] Rate: 71 P: 71 SD: 202 QRS: -19 QRSD: 90 T: 45 QT: 394 QTc: 430 Interpretive Statements SINUS RHYTHM POSSIBLE RIGHT VENTRICULAR CONDUCTION DELAY [RSR (QR) IN V1/V2] Compared to ECG 01/15/2023 15:25:49 Incomplete right bundle-branch block no longer present Electronically Signed On 07-10-2023 13:10:34 CDT by Yann Vick M.D. [id number]
[2023-07-10] MEDS: sodium chloride 0.9% 1,000 ML 30 ML IV (10:22)
--- NOTE | 2023-07-10 10:45 | ANES.PREANE2 ---
Pre-Anesthetic Assessment Height/Weight: Height 1.75 m Weight 89.358 kg Temp Pulse Resp BP Pulse Ox O2 Del Method 97.7 F 82 18 141/79 95 Room Air 07/10/23 10:07/10/23 10:07/10/23 10:07/10/23 10:01 07/10/23 10:07/10/23 10:01 Preop Diagnosis: Lumbar stenosis with neurogenic claudication Operation Date: 07/10/23 11:25 Proposed Procedures p Lumbar Spine Decompression L3-4, L4-5(Not Applicable) - Sanchez Chacko, DO Familial anesthetic complications: None Was Beta Ignacio taken within 24 hours: N/A Was Clonidine taken within 24 hours: N/A Last intake: Intake Last Liquid Date 07/09/23 Last Liquid Time 21:00 Last Solid Date 07/09/23 Last Solid Time 21:00 Social No alcohol and No tobacco Exam alert, oriented x 3, clear to auscultation bilaterally and regular rate & rhythm Airway Mallampati: Class II Dentition: false Pulmonary Asthma (esosinophilic) and Chronic Obstructive Pulmonary Disease CV/HEM Coronary Artery Disease (stent 2022, off plavix now) and Hypertension EF 68%, mod AVR GI Gastroesophageal Reflux Disease Anesthetic Plan ASA status: 3 Anesthesia: General Risk of > 500 ml blood loss (7ml/kg in children): No Medications/Allergies Home Medications Medication Instructions Recorded Confirmed Last Taken Type acetaminophen 500 mg tablet 500 mg PO QID PRN Pain 04/24/22 07/09/23 07/08/23 History albuterol sulfate 90 mcg/actuation 2 puff inhalation QID PRN 04/24/22 07/09/23 07/06/23 History aerosol inhaler (ProAir HFA) Shortness Of Breath terazosin 10 mg capsule 10 mg PO QPM 04/24/22 07/09/23 07/08/23 History aspirin 81 mg tablet,delayed 81 mg PO DAILY #90 tabs 04/25/22 07/09/23 07/04/23 Rx release atorvastatin 40 mg tablet 80 mg (2 x 40 mg) PO DAILY #90 tabs 04/25/22 07/09/23 07/08/23 Rx chlorthalidone 25 mg tablet 12.5 mg (1/2 x 25 mg) PO DAILY #90 04/25/22 07/09/23 07/04/23 Rx tabs clopidogrel 75 mg tablet 75 mg PO DAILY #90 tabs 04/25/22 07/09/23 07/04/23 Rx nitroglycerin 0.4 mg sublingual 0.4 mg sublingual Q5M PRN Chest 04/25/22 07/09/23 Unknown Rx tablet Pain #10 tabs pantoprazole 40 mg tablet,delayed 40 mg PO BID 06/23/22 07/09/23 07/08/23 History release bupropion HCl 75 mg tablet 75 mg PO BID 09/19/22 07/09/23 07/04/23 History lidocaine 5 % topical patch 1 patch topical DAILY PRN Pain 09/19/22 07/09/23 07/02/23 History L.acidoph, paracasei,B. lactis 10 10,000,000 cell PO DAILY 11/07/22 07/10/23 07/08/23 History billion cell capsule (Digestive Advantage Advanced Probiotic) TLSO BRACE #1 ea 11/25/22 04/29/23 Unknown Rx losartan 25 mg tablet 25 mg PO DAILY #90 tabs 03/03/23 07/09/23 07/06/23 Rx fluticasone propionate 115 2 puff inhalation Q12H #12 grams 04/29/23 07/09/23 06/26/23 Rx mcg-salmeterol 21 mcg/actuation HFA inhaler (Advair HFA) Allergies Allergy/AdvReac Type Severity Reaction Status Date / Time No Known Allergies Allergy Verified 06/26/23 09:50 Current Medications Generic Name Dose Route Start Last Admin Trade Name Freq PRN Reason Stop Dose Admin Sodium Chloride 1,000 mls @ 30 mls/hr 07/10/23 09:45 07/10/23 10:22 Sodium Chloride 0.9% IV 07/11/23 09:44 30 mls/hr .Q24H JUAREZ Administration PFSH Anesthesia Medical History Fatigue SOB (shortness of breath) CAD (coronary artery disease) Essential hypertension Non-ST elevation [place] (NSTEMI) Unstable angina Benign prostate hyperplasia Surgical History Stented coronary artery No pertinent past surgical history Family History Other Cancer Diabetes Hypertension Denies family history of CAD (coronary artery disease) Stroke Social History Smoking and tobacco/nicotine status: former use of tobacco/nicotine Quit status (tobacco/nicotine): has quit using Year quit tobacco: 1973 Former quit date comment: 2 ppd X 15 years Data Anesthesia Cardiac Studies: Echocardiogram 06/09/22
--- NOTE | 2023-07-10 10:49 | SUR.PREOP ---
1048-received report on patient to resume care.
--- NOTE | 2023-07-10 12:54 | W.PM.OPSUD ---
Surgery/Procedure H&P Update DATE OF PROCEDURE: July 10, 2023 DATE H&P PERFORMED: 06/26/23 H&P UPDATE INFORMATION: I have reviewed H&P completed within last 30 days, I have examined patient prior to procedure and No changes to prior documentation PREOP DIAGNOSIS: Lumbar stenosis with neurogenic claudication PLANNED PROCEDURE: Operation Date: 07/10/23 11:25 Proposed Procedures p Lumbar Spine Decompression L3-4, L4-5(Not Applicable) - Sanchez Chacko DO
[2023-07-10] MEDS: ceFAZolin 2,000 MG in sodium chloride 0.9% (plus) 50 ML 100 MG IV (13:03)
[2023-07-10] MEDS: lidocaine-epi 1% 20 mL INJ INJECTION (13:43)
--- NOTE | 2023-07-10 14:33 | P.OP_ITS ---
Operative Report Date of procedure: July 10, 2023 Pre-op diagnosis: Lumbar stenosis with neurogenic claudication Post-op diagnosis: same Procedure done: 1. L3-4 laminectomy with partial facetectomy 2. L4-5 laminectomy with partial facetectomy Surgeon: Sanchez Chacko DO Estimated blood loss (mL): 10 Complications: Dural tear at L3-4 Procedure: Patient is brought to the operative suite. After undergoing anesthesia they are placed in the prone position. All areas of impingement are well padded. Patient is then prepped and draped in the normal sterile fashion. A skin incision is made over the L4/5 level. This is confirmed under c-arm guidance. A series of dilators are passed and the tubular retractor is docked on the L4 lamina. A bovie is used to clear the soft tissue off the lamina and the L 4/5 facet joint. A high speed aurora is then used to perform the laminectomy and take down the medial aspect of the L 4/5 facet joint. A kerrison rongeure was then used to take down the remaining lamina and smooth the edged of the laminectomy up to the point where the ligamentum flavum attaches. Attention was then brought to the medial aspect of the facet joint. The remaining medial aspect of the superior and inferior aspect of the facet joint were taken down with the kerrison from the pedicle of L4 to L 5. The facet joint had significant hypertrophy. Attention was then brought to the Ligamentum Flavum. The ligament was taken down from the lamina of L4 to L5 and out medially to the remaining facet joint. The ligament was thick. The dura was then exposed. The dura was in good repair. The L4 nerve was then traced with a curette out the L4/5 foramen and found to be adequately decompressed. The L5 nerve was traced with a curette around the L5 pedicle. The lateral recess was opened with a kerrison helping to further decompress the L5 nerve. The tubular retractor was then tilted to the contralateral side. The bovie was used to take down the soft tissue on the spinous process. The high speed aurora was used to take down the spinous process and then the contralateral lamina of L4. The kerrison rongeur was used to take down the remaining lamina to the point where the ligamentum flavum attached and the ligamentum flavum was taken down from L4 to L5. The kerrison rongeur was then used to reach across and take down the medial aspect of the contralateral L4/5 facet joint.The currete was used to trace the contralateral L4 nerve out the L4/5 foramen to make sure it was decompressed adequatesly and the L5 was traced around the L5 pedicle. The lateral recess was opened further with the kerrison to ensure the L5 is adequately decompressed. Wound is then irrigated copiously with saline and surgiflo is used to stop any bleeding. The tubular retractor is removed and the A skin incision is made over the L3-4 level. This is confirmed under c-arm guidance. A series of dilators are passed and the tubular retractor is docked on the L3 lamina. A bovie is used to clear the soft tissue off the lamina and t he L 3/4 facet joint. A high speed aurora is then used to perform the laminectomy and take down the medial aspect of the L 3/4 facet joint. A kerrison rongeure was then used to take down the remaining lamina and smooth the edged of the laminectomy up to the point where the ligamentum flavum attaches. Attention was then brought to the medial aspect of the facet joint. The remaining medial aspect of the superior and inferior aspect of the facet joint were taken down with the kerrison from the pedicle of L3 to L 4. The facet joint had significant hypertrophy. Attention was then brought to the Ligamentum Flavum. The ligament was taken down from the lamina of L3 to L4 and out medially to the remaining facet joint. The ligament was thick. The dura was then exposed. The L3 nerve was then traced with a curette out the L3/4 foramen and found to be adequately decompressed. The L4 nerve was traced with a curette around the L4 pedicle. The lateral recess was opened with a kerrison helping to further decompress the L4 nerve. The tubular retractor was then tilted to the contralateral side. The bovie was used to take down the soft tissue on the spinous process. The high speed aurora was used to take down the spinous process and then the contralateral lamina of L3. The kerrison rongeur was used to take down the remaining lamina to the point where the ligamentum flavum attached and the ligamentum flavum was taken down from L3 to L4. The kerrison rongeur was then used to reach across and take down the medial aspect of the contralateral L3/4 facet joint.a small dural tear occurred reaching across. This was patched and DuraSeal was used. The currete was used to trace the contralateral L3 nerve out the L3/4 foramen to make sure it was decompressed adequatesly and the L4 was traced around the L4 pedicle. The lateral recess was opened further with the kerrison to ensure the L4 is adequately decompressed. Wound is then irrigated copiously with saline and surgiflo is used to stop any bleeding. The tubular retractor is removed and the wound is closed with vicryl and monocryl suture. Glue is then used to protect the wound. A sterile dressing is then placed. Patient was then placed in the supine position and transferred to the PACU in stable condition.
[2023-07-10] MEDS: HYDROcodone-acetaminophen 5-325 mg Tablet 2 TAB PO (15:39)
--- NOTE | 2023-07-10 16:10 | ANE.PACU2 ---
Inpatient post-anesthesia follow up: Airway intact: Yes Vital signs: Temperature 98.0 F Pulse Rate 83 Respiratory Rate 17 Blood Pressure 145/68 Pulse Oximetry 91 Oxygen Delivery Me thod Room Air Oxygen Flow Rate 6 Fraction of Inspir ed Oxygen Hydration adequate: Yes Nausea and vomiting: No Pain level: 1 Mental status: Baseline
== END 2023-07-10 16:06 | disposition home or self-care (01) ==
PROVIDERS: PCP Family Medicine; Visit Provider Orthopaedic Surgery
PROC: (CPT 63005; principal; 2023-07-10 11:05)
DX: M48.062 Spinal stenosis, lumbar region with neurogenic claudication (principal); J44.9 Chronic obstructive pulmonary disease, unspecified; I25.10 Atherosclerotic heart disease of native coronary artery without angina pectoris; Z95.5 Presence of coronary angioplasty implant and graft; I10 Essential (primary) hypertension; K21.9 Gastro-esophageal reflux disease without esophagitis; Z79.82 Long term (current) use of aspirin; Z87.891 Personal history of nicotine dependence
CPT/HCPCS: 63047; 63048; 72100; 76000; 93005; J0690; J1100; J2250; J2405; J2704; J2710; J3010; J3490; J7030

== ENCOUNTER 2023-07-13 09:04 | Emergency (ER) | payer OTHER, SELFPAY ==
[2023-07-13 09:45] VITALS: BP 146/78; PULSE 92; RESP 18; TEMP 36.7; O2SAT 98
--- NOTE | 2023-07-13 09:52 | W.ED.BACK ---
HPI - Back Pain/Injury General: Chief Complaint: Back Pain/Injury Stated Complaint: Back pain Time Seen by Provider: 07/13/23 09:10 Source: patient and family () Mode of arrival: wheelchair Limitations: no limitations History of Present Illness: Patient is a very nice 77-year-old male who presents to ED today along with his for evaluation of lower back pain. He is 3 days postop L3-4 and L4-5 laminectomies with partial facetectomies by Dr. Chacko. He was discharged the same day. States over the weekend he has been using his hydrocodone as frequently as 2 tabs every 6 hours but states this is not controlling his pain. Patient feels like there is something in his back that is catching and states he cannot ambulate because of such discomfort. He is not having any numbness, tingling, weakness to his legs. He is urinating normally. Patient states he has not had a bowel movement since surgery. He is taking daily stool softeners. He is not having any abdominal pain. No fevers. states she is keeping an eye on his surgical incision and feels like it is clean and healing well. MD elicited complaint: back pain Pertinent past history: back surgery Onset (ago): day(s) Timing: constant Severity: severe Similar Symptoms Previously: No Location: lumbar spine Radiation: none Exacerbating factors: movement and walking Relieving factors: immobilization Associated symptoms: Reports difficulty walking (secondary to back pain); Deny abdominal pain, chills, dysuria, fatigue, fever(s) or hematuria Treatments prior to arrival: prescription analgesics Work related injury: No Review of Systems Const: Denies: fever(s), chills, body aches, fatigue or malaise Card: Denies: chest pain Resp: Denies: dyspnea GI: Denies: abdominal pain : Denies: flank pain, dysuria, urinary hesitancy, urinary dribbling or hematuria Musc: Reports: back pain; Denies: neck pain, extremity pain, extremity swelling, joint pain or joint swelling Skin/Breast: Denies: rash Neuro: Reports: difficulty walking (secondary to back pain); Denies: headache(s), numbness in extremities, weakness in extremities or sensory changes PFS ED PFSH: Medical History Fatigue SOB (shortness of breath) CAD (coronary artery disease) Essential hypertension Non-ST elevation [place] (NSTEMI) Unstable angina Benign prostate hyperplasia Surgical History Stented coronary artery No pertinent past surgical history Family History Other Cancer Diabetes Hypertension Denies family history of CAD (coronary artery disease) Stroke Social History Smoking and tobacco/nicotine status: former use of tobacco/nicotine Quit status (tobacco/nicotine): has quit using Year quit tobacco: 1973 Former quit date comment: 2 ppd X 15 years Physical Exam Const: COMMON NORMALS: no acute distress, average body habitus, patient oriented x3, no limitations, healthy appearing, alert and well nourished GENERAL APPEARANCE: cooperative ORIENTATION/CONSCIOUSNESS: Yes awake, Yes oriented to person, Yes oriented to place and Yes oriented to time GI: COMMON NORMALS: Normal to inspection, nondistended, normoactive bowel sounds present, Soft to palpation and non-tender PALPATION: Yes Soft to palpation : COMMON NORMALS: Yes no CVA tenderness BLADDER/KIDNEY EXAM: Yes no CVA tenderness Back/Pelvis: COMMON NORMALS: no CVA tenderness LUMBAR SPINE/LOWER BACK: Yes other soft tissue findings (surgical incision appears normal/well healed/intact steri-strips) PELVIS: Yes buttocks normal and No sciatic notch tenderness SACRUM: no tenderness COCCYX: no tenderness Extremity: COMMON NORMALS: normal to inspection, full ROM, capillary refill normal, no joint enlargement, no clubbing, cyanosis or edema, no calf tenderness and no pedal edema GENERAL: Yes normal exam except as noted Neuro: COMMON NORMALS: patient oriented x3, moves all extremities, no focal motor deficits and no sensory deficits noted SENSORIUM/ORIENTATION: Yes alert, Yes oriented to person, Yes oriented to place and Yes oriented to time GAIT: Yes Unable to assess gait Skin: COMMON NORMALS: no rashes or lesions noted GENERAL SKIN EXAM: no rashes or lesions noted Course Vital Signs: Vital signs: Vital Signs Temperature 98.0 F 07/13/23 09:45 Pulse Rate 92 07/13/23 09:45 Respiratory Rate 16 07/13/23 10:37 Blood Pressure 146/78 07/13/23 09:45 Pulse Oximetry 98 07/13/23 09:45 MDM - Back Pain/Injury Medical Decision Making Patient here on day 3 postop laminectomy/partial facetectomies with Dr. Chacko for lower back pain. He has no acute neurologic deficits on history or physical exam. His incision seems to be well-healing. Patient noting significant relief after medications given here and was ambulatory with the help of his walker. Patient is requesting stronger pain medications which will be provided. Will also place him on muscle relaxers and steroids. Recommend he contact Dr. Chacko tomorrow for follow-up. Return to ED precautions given. Medical Records I reviewed the patient's medical records. No radiology studies performed this visit Discharge Plan Discharge Patient Disposition: Home Clinical Impression: Postoperative back pain Condition: Stable Prescriptions: New methocarbamol 500 mg tablet 1,000 mg PO Q8H Qty: 30 0RF prednisone 10 mg tablet 10 mg PO DAILY 6 Days Qty: 20 0RF Rx Instructions: Take 5 tabs on day 1-2, 4 tabs on day 3, 3 tabs on day 4, 2 tabs on day 5, and 1 tab on day 6 oxycodone-acetaminophen 5-325 mg tablet 1 tab PO Q4H PRN (Reason: pain) Qty: 14 0RF No Action pantoprazole 40 mg tablet,delayed release (DR/EC) 40 mg PO BID fluticasone propion-salmeterol [Advair HFA] 115-21 mcg/actuation HFA aerosol inhaler 2 puff inhalation Q12H Qty: 12 3RF (DME) TLSO JESSIKACE See Rx Instructions .Route .MEDSUPPLY Qty: 1 0RF Rx Instructions: As directed bupropion HCl 75 mg tablet 75 mg PO BID lidocaine 5 % adhesive patch,medicated 1 patch topical DAILY PRN (Reason: Pain) Rx Instructions: leave on most painful area for up to 12 hrs losartan 25 mg tablet 25 mg PO DAILY Qty: 90 3RF Colace 100 mg Capsule 100 mg PO DAILY hydrocodone-acetaminophen 5-325 mg tablet 1 - 2 tab PO .Q4-6H PRN (Reason: Pain) acetaminophen 500 mg Tablet 500 mg PO QID PRN (Reason: Pain) albuterol sulfate [ProAir HFA] 90 mcg/actuation Hfa Aerosol Inhaler 2 puff INHALATION QID PRN (Reason: Shortness Of Breath) terazosin 10 mg Capsule 10 mg PO QPM atorvastatin 40 mg Tablet 80 mg PO DAILY Qty: 90 3RF clopidogrel 75 mg Tablet 75 mg PO DAILY Qty: 90 3RF Hold Instructions: Resume on 07/12/23. chlorthalidone 25 mg Tablet 12.5 mg PO DAILY Qty: 90 0RF aspirin 81 mg Tablet,Delayed Release (Dr/Ec) 81 mg PO DAILY Qty: 90 3RF Hold Instructions: Resume on 07/12/23. nitroglycerin 0.4 mg Tablet, Sublingual 0.4 mg sublingual Q5M PRN (Reason: Chest Pain) Qty: 10 0RF Discharge Orders: Discharge ED (Routine); Ordered 07/13/23 Ordered By: Tori Jamison Referrals: Denise Toro MD [Primary Care Provider] - Patient Instructions: Opioid Safety, Pain Management Activity Restrictions/Additional Instructions: As we discussed please contact Dr. Chacko's office tomorrow morning to see if he would like to see you this week for follow-up. Do not take the oxycodone prescription that I gave you today along with the hydrocodone that you already have. Coding Level of Care Code ED Assistant Tennis Coach for Pedro Tyler
[2023-07-13 10:37] VITALS: RESP 16
[2023-07-13] MEDS: HYDROmorphone 1 mg/mL INJ 1 mL IVP (10:37)
[2023-07-13] MEDS: ondansetron 2 mg/ML SDV 2 mL 4 MG IVP (10:41)
[2023-07-13] MEDS: dexamethasone 10 mg/mL INJ IVP (10:47)
[2023-07-13] MEDS: orphenadrine 30 mg/mL Inj 2 mL 60 MG IV (10:48)
[2023-07-13 11:43] VITALS: BP 146/78; PULSE 92; RESP 16; TEMP 36.7; O2SAT 98
== END 2023-07-13 11:44 | disposition home or self-care (01) ==
PROVIDERS: Emergency Provider Physician Assistant; PCP Family Medicine
DX: G89.18 Other acute postprocedural pain (principal); M54.50 Low back pain, unspecified; Z79.02 Long term (current) use of antithrombotics/antiplatelets; Z79.82 Long term (current) use of aspirin; I25.10 Atherosclerotic heart disease of native coronary artery without angina pectoris; I10 Essential (primary) hypertension; I25.2 Old myocardial infarction; Z87.891 Personal history of nicotine dependence
CPT/HCPCS: 96374; 96375; 99284; J1100; J1170; J2360; J2405

== ENCOUNTER → 2023-07-23 08:43 | Outpatient (BNVA) | payer OTHER, SELFPAY | PROVIDERS: PCP Family Medicine; Visit Provider Orthopaedic Surgery | DX: Z98.890 Other specified postprocedural states (principal) | CPT/HCPCS: 99024 ==

== ENCOUNTER → 2023-08-06 08:09 | Outpatient (BNVA) | payer OTHER, SELFPAY | PROVIDERS: PCP Family Medicine; Visit Provider Orthopaedic Surgery | DX: Z98.890 Other specified postprocedural states (principal) | CPT/HCPCS: 99024 ==

== ENCOUNTER → 2023-08-17 10:39 | Outpatient (BNVA) | payer OTHER, SELFPAY | PROVIDERS: PCP Family Medicine; Visit Provider Internal Medicine Cardiovascular Disease | DX: I25.10 Atherosclerotic heart disease of native coronary artery without angina pectoris (principal); Z95.5 Presence of coronary angioplasty implant and graft; I10 Essential (primary) hypertension; Z87.891 Personal history of nicotine dependence; J82.83 Eosinophilic asthma; R06.02 Shortness of breath; R53.83 Other fatigue | CPT/HCPCS: 99213 ==

== ENCOUNTER 2023-08-28 07:20 | Outpatient (CLI) | payer OTHER, SELFPAY ==
--- NOTE | 2023-08-28 | ECG_ITS ---
[facility] Test Date: 2023-08-28 Pat Name: Costa Aguilar Department: Room: Gender: Male Community Relations Representative: : 1945 Requested By: Trever Malagon Order Number: [id number] Wade WAGNER: Interpretive Statements Lung unchanged pre/post procedure; Intraprocedure shortess of breath; Symptoms resoled by discharge [email or web address]
[2023-08-28 07:42] VITALS: BMI 29.2
--- NOTE | 2023-08-28 07:54 | NMCV_ITS ---
NM edmund perf SPECT r/s* [id number] Costa Aguilar Age: 77 Gender: M : 1945 Exam Date: 08/28/2023 08:10 Ordering Phys: Trever Malagon MD ([email or web address]) Technologist: MARION Chambers Exam Location: [facility] [address] Indications: CP, SOB STRESS TEST [facility] IMAGE PROTOCOL Rest/Stress 1 Lexiscan Day Radiopharmaceutical Dose (mCi) Administration Site Administered by Rest: Tc-99m 10.4 IV MARION Chambers Sestamibi Stress:Tc-99m 32.8 IV MARION Chambers Sestamibi Rest: 28-Aug-2023 60 Discovery 630 Stress: 28-Aug-2023 30 Discovery 630 0.4mg Lexiscan. Images obtained in supine and prone position. SPECT RESULTS Technical Quality: Excellent Raw Data Analysis: Normal Image Corrections: No attenuation or motion correction applied Summed Stress Score: 6 Summed Rest Score: 3 Summed Difference Score: 3 PERFUSION FINDINGS There is a medium sized area of partially reversible perfusion defect seen in the apical lateral and lateral hughes. This is consistent with small sized area of prior infarct with small to medium sized area of chucky-infarct ischemia in the left circumflex artery territory. FUNCTIONAL RESULTS (calculated via Gated SPECT) Stress Image LV EF (%): 67 Stress EDV (mL):96 TID: 0.95 Stress ESV (mL):32 FUNCTIONAL FINDINGS: There is normal left ventricular systolic function. IMPRESSIONS 1. Small sized area of prior infarct with small to medium sized area of chucky- infarct ischemia seen in the left circumflex artery territory 2. LV systolic function is normal Yann Vick MD (Electronically Signed) Final Date: 28 August 2023 11:07 S
[2023-08-28] MEDS: regadenoson 0.4 Mg/5 ml Syringe IVP (09:00)
[2023-08-28 09:21] VITALS: BP 166/84; PULSE 66
== END 2023-08-28 07:21 | disposition home or self-care (01) ==
LOC: CDL 07:21
PROVIDERS: PCP Family Medicine; Visit Provider Internal Medicine Cardiovascular Disease
DX: Z95.5 Presence of coronary angioplasty implant and graft (principal); I25.10 Atherosclerotic heart disease of native coronary artery without angina pectoris; R94.39 Abnormal result of other cardiovascular function study
CPT/HCPCS: 36415; 78452; 93017; 96374; A9500; J2785

== ENCOUNTER → 2023-09-10 07:59 | Outpatient (BNVA) | payer OTHER, SELFPAY | PROVIDERS: PCP Family Medicine; Visit Provider Orthopaedic Surgery | DX: Z98.890 Other specified postprocedural states (principal) | CPT/HCPCS: 99024 ==

== ENCOUNTER 2023-10-15 08:50 | Outpatient (CLI) | payer OTHER, SELFPAY ==
--- NOTE | 2023-10-15 08:56 | CT_ITS ---
WS: [id number] CT chest wo con [id number] HISTORY: Follow up lung nodules TECHNIQUE: Axial imaging performed through the thorax. Coronal and sagittal reformats are submitted. All CT scans at [facility] use at least one of these dose optimization techniques: automated exposure control; mA and/or kV adjustment per patient size (includes targeted exams where dose is mat ched to clinical indication); or iterative reconstruction. CONTRAST: Omnipaque 350; 100 mL IV. DLP: 446.15 mGy.cm COMPARISON: 10/08/2022 Lungs and central airway: Normally aerated lungs. No change in the micronodule LEFT upper lobe, image 19 series 4. Several scattered benign granulomatous. Micronodules RIGHT middle lobe are also unchang ed. There is no new or enlarging mass. No pneumonia. No endobronchial lesions. Pleura: No pleural effusions. Mild pleural fat thickening in the posterior mid LEFT thorax. Heart and pericardium: Heart is top normal size. No pericardial effusion. Mediastinum and prince: There are small mediastinal and hilar lymph nodes. Hilar regions are not well e valuated without IV contrast. Similar configuration of the mediastinum and hilum. Vessels: Mild atherosclerosis aorta. No aneurysm. Normal size pulmonary artery. Chest wall and lower neck: No soft tissue masses. Upper abdomen: Normal. Osseous structures: No destructive process. CT/CT chest wo con [id number] IMPRESSION: 1. Stable micronodules in the LEFT upper and RIGHT middle lobes. No progressio n or new nodules. Yearly noncontrast CT evaluation can be performed. 2. Mild atherosclerosis aorta.
== END 2023-10-15 08:51 | disposition home or self-care (01) ==
LOC: RAD 08:51
PROVIDERS: PCP Family Medicine; Visit Provider Internal Medicine Pulmonary Disease
DX: R91.8 Other nonspecific abnormal finding of lung field (principal); J84.10 Pulmonary fibrosis, unspecified
CPT/HCPCS: 71250

== ENCOUNTER → 2023-11-02 12:24 | Outpatient (BNVA) | payer OTHER, SELFPAY | PROVIDERS: PCP Family Medicine; Visit Provider Internal Medicine Critical Care Medicine | DX: R06.02 Shortness of breath (principal); R91.8 Other nonspecific abnormal finding of lung field; Z12.2 Encounter for screening for malignant neoplasm of respiratory organs; F17.200 Nicotine dependence, unspecified, uncomplicated; Z71.82 Exercise counseling; Z71.3 Dietary counseling and surveillance; Z71.89 Other specified counseling; E66.3 Overweight; Z68.29 Body mass index [BMI] 29.0-29.9, adult | CPT/HCPCS: 99213; 99214 ==

== ENCOUNTER → 2023-12-23 12:51 | Outpatient (BNVA) | payer OTHER, SELFPAY | PROVIDERS: PCP Family Medicine; Visit Provider Internal Medicine Cardiovascular Disease | DX: I49.8 Other specified cardiac arrhythmias (principal); R07.9 Chest pain, unspecified | CPT/HCPCS: 93005 ==

== ENCOUNTER → 2024-06-29 10:53 | Outpatient (BNVA) | payer OTHER, SELFPAY | PROVIDERS: PCP Family Medicine; Visit Provider Nurse Practitioner Family | DX: I25.10 Atherosclerotic heart disease of native coronary artery without angina pectoris (principal); I35.1 Nonrheumatic aortic (valve) insufficiency; I10 Essential (primary) hypertension; E78.5 Hyperlipidemia, unspecified; Z87.891 Personal history of nicotine dependence; I25.2 Old myocardial infarction | CPT/HCPCS: 99213 ==

== ENCOUNTER 2024-08-12 06:40 | Outpatient (CLI) | payer OTHER, SELFPAY ==
--- NOTE | 2024-08-12 07:00 | USCV_ITS ---
Costa Aguilar Age: 78 Gender: M : 1945 Exam Date: 08/12/2024 06:57 Ordering Phys: Tori Irby NP Technologist: Exam Location: [facility] Indication: cad BP: 140 / 80 HR: 69 Rhythm: Sinus Technical Quality: Adequate MEASUREMENTS (Male / Female) Normal Values 2D ECHO LV Diastolic Diameter PLAX 4.6 cm 4.2 - 5.9 / 3.9 - 5.3 cm IVS Diastolic Thickness 1.0 cm 0.6 - 1.0 / 0.6 - 0.9 cm IVS Systolic Thickness 1.7 cm LVPW Diastolic Thickness 1.1 cm 0.6 - 1.0 / 0.6 - 0.9 cm LVPW Systolic Thickness 1.7 cm LVOT Diameter 2.1 cm LV Ejection Fraction 2D Teich 68.4 % LV Ejection Fraction MOD 4C 64.6 % LV Ejection Fraction MOD 2C 66.9 % LV Ejection Fraction 2C AL 66.1 % LA Diameter 3.5 cm RA Systolic Volume 4C AL 46.6 ml RA Systolic Volume 4C MOD 47.3 ml Aorta at Sinotubular Diameter 3.2 cm M-MODE LA Ao Ratio MM 1.3 AV Cusp Separation MM 2.6 cm DOPPLER AV Peak Velocity 103.0 cm/s LVOT Peak Velocity 70.0 cm/s AV Area Cont Eq vti 3.1 cm squared AV Area Cont Eq pk 2.3 cm squared MV Peak Velocity 96.0 cm/s MV Area PHT 3.7 cm squared Mitral E to A Ratio 1.0 TV Peak Velocity 204.5 cm/s TR Peak Velocity 224.0 cm/s TR Peak Gradient 20.1 mmHg TV Peak E Velocity 79.0 cm/s PV Peak Velocity 71.0 cm/s FINDINGS Left Ventricle Left ventricle is normal in size. LV systolic function is normal with EF of 60 to 65%. No regional wall motion abnormalities are seen. Right Ventricle Normal in size and function Right Atrium Normal in size Left Atrium Normal in size Mitral Valve Structurally normal mitral valve. Trace mitral regurgitation Aortic Valve Structurally normal aortic valve. Trace aortic regurgitation. No significant stenosis Tricuspid Valve Mild tricuspid regurgitation. Pulmonary artery systolic pressure is normal Pulmonic Valve Not well visualized Pericardium Normal Aorta Normal in size IVC Not well visualized CONCLUSIONS LV systolic function is normal with EF of 60-65%. Trace mitral regurgitation Trace aortic regurgitation Mild tricuspid regurgitation. Yann Vick MD (Electronically Signed) Final Date: 26 August 2024 12:40 S
== END 2024-08-12 06:41 | disposition home or self-care (01) ==
LOC: RAD 06:41
PROVIDERS: PCP Family Medicine; Visit Provider Nurse Practitioner Family
DX: I35.1 Nonrheumatic aortic (valve) insufficiency (principal); I07.1 Rheumatic tricuspid insufficiency
CPT/HCPCS: 93306

== ENCOUNTER → 2024-08-23 13:51 | Outpatient (BNVA) | payer OTHER, SELFPAY | PROVIDERS: PCP Family Medicine; Visit Provider Orthopaedic Surgery | DX: M79.642 Pain in left hand (principal); M65.332 Trigger finger, left middle finger; M24.542 Contracture, left hand | CPT/HCPCS: 73130; 99204 ==

== ENCOUNTER → 2024-12-20 16:12 | Outpatient (BNVA) | payer OTHER, SELFPAY | PROVIDERS: PCP Family Medicine; Visit Provider Internal Medicine Cardiovascular Disease | DX: I25.10 Atherosclerotic heart disease of native coronary artery without angina pectoris (principal); I10 Essential (primary) hypertension; I35.1 Nonrheumatic aortic (valve) insufficiency; R00.2 Palpitations; Z87.891 Personal history of nicotine dependence | CPT/HCPCS: 99213 ==